=== PATIENT | male | born 1975 | race Caucasian/White ===

== ENCOUNTER 2017-05-13 20:37 | Emergency (ER) | payer OTHER ==
[~2017-05-13] VITALS: Ht 177.8 cm; Wt 104.1 kg
[~2017-05-13 20:37] MED LIST: OMEP40CA2 PO; PARO20TA3 PO
--- NOTE | 2017-05-14 00:40 | REPUSA ---
CLINICAL HISTORY: Edema. COMMENTS: Real time sonography with duplex doppler of the extremities bilaterally was performed with attention to the major deep venous structures. Evaluation reveals the common femoral, superficial femoral and popliteal veins bilaterally to be comp letely compressible without intraluminal thrombus. There is normal spontaneous phasic flow and augmen tation in all deep veins. The greater saphenous/common femoral vein junctions are patent bilaterally. IMPRESSION: No evidence of DVT in the lower extremities bilaterally. Thank you for your kind referral of this patient.
[2017-05-14 00:44] LABS: BASO % 0.4 % (0.0-1.0); EOS # 0.2 10^3/uL (0.0-0.50); EOS % 3.4 % (0.0-3.0); IMMATURE GRANULOCYTE % 0.9 % (0-0); LYMPH # 1.3 10^3/uL (1.5-4.5); LYMPH % 23.7 % (24.0-44.0); MEAN CORPUSCULAR HEMOGLOBIN 30.7 pg (27.0-33.0); MEAN CORPUSCULAR VOLUME 87.5 fl (80.0-96.0); MONO # 0.3 10^3/uL (0.0-0.8); MONO % 5.9 % (0.0-5.0); NEUTROPHILS # 3.7 10^3/uL (1.8-7.7); NEUTROPHILS % 65.7 % (36.0-66.0); PLATELET COUNT, AUTOMATED 226 10^3/uL (150-450); RED CELL DISTRIBUTION WIDTH 12.6 % (11.5-14.5); WHITE BLOOD COUNT 5.6 10^3/uL (4.0-10.0)
[2017-05-14 00:54] LABS: INR 1.09
[2017-05-14 01:07] LABS: ALBUMIN/GLOBULIN RATIO 1.43 (1.00-1.93); ALKALINE PHOSPHATASE 94 U/L (45-117); ALT/SGPT 37 U/L (12-78); ANION GAP 3 MEQ/L (8-16); AST/SGOT 19 U/L (15-37); BILIRUBIN,DIRECT 0.2 MG/DL (0.0-0.2); BILIRUBIN,TOTAL 0.7 MG/DL (0.2-1.0); BLOOD UREA NITROGEN 19 MG/DL (7-18); CALCIUM LEVEL 8.5 MG/DL (8.5-10.1); CARBON DIOXIDE LEVEL 30 MEQ/L (21-32); CHLORIDE LEVEL 110 MEQ/L (98-107); CREATININE FOR GFR 1.21 MG/DL (0.70-1.30); GLOMERULAR FILTRATION RATE > 60.0 (>60); GLUCOSE, FASTING 94 MG/DL (70-105); POTASSIUM SERUM 4.1 MEQ/L (3.5-5.1); SODIUM LEVEL 143 MEQ/L (136-145); TOTAL PROTEIN 6.8 GM/DL (6.4-8.2)
[2017-05-14] MEDS ORDERED: ISOVUE-370 76% 100ML VIAL (Q9967) As Ordered ONE (01:20)
--- NOTE | 2017-05-14 02:20 | REPUSA ---
CLINICAL HISTORY: Dyspnea, exclude PE. TECHNIQUE: Multiple incremental axial, coronal and oblique images are obtained from the thoracic inle t to the upper abdomen. Intravenous contrast material was administered as per pulmonary embolism prot ocol. COMMENTS: Bilateral upper lobes and right lower lobe segmental branch pulmonary emboli. There is excellent opacification of remaining pulmonary arterial system without evidence for central pulmonary embolism. Aorta is of normal caliber without evidence for dissection or aneurysm. Minimal subpleural groundglass densities of the lower lobes. There is no evidence of pleural or parenchymal mass. There are no pleural effusions. There is no evid ence of hilar or mediastinal lymphadenopathy. The heart and great vessels are within normal limits. Images of the upper abdomen demonstrate no evidence of adrenal mass. The bony structures are free of lytic or blastic lesions. IMPRESSION: Segmental branches pulmonary emboli in the upper lobes and right lower lobe. No main central pulmonary embolus. Minimal subpleural groundglass densities in the lower lobes. Subsegmental atelectatic air space disea se, developing infarctions versus a mild acute inflammatory pathology. Thank you for your kind referral of this patient.
[2017-05-14] MEDS ORDERED: ELIQ5TAB PO (03:35)
[2017-05-14] MEDS ORDERED: APIXABAN 5 MG TAB (ELIQUIS) PO ONE (03:45)
[2017-05-14 04:08] VITALS: BP 154/80
--- NOTE | 2017-05-14 08:30 | REP ---
PA and lateral chest: There are no comparisons. Lung coyne are clear. Cardiac size is mildly enlarged. The aj, mediastinum, and bony thorax are unremarkable. Impression: Mild cardiomegaly. Signed by Guicho Villareal MD 05/14/2017 08:22 A
--- NOTE | 2017-05-15 07:31 | ED PDOC ---
Post-Departure Follow-Up radiology report faxed to Violet Herrera MD May 15, 2017 07:31
--- NOTE | 2017-05-15 07:58 | ECGEPIP ---
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
== END 2017-05-14 04:12 | disposition home or self-care (01) ==
LOC: M ED 20:37
DX: I26.99 Other pulmonary embolism without acute cor pulmonale (principal); R00.1 Bradycardia, unspecified; K21.9 Gastro-esophageal reflux disease without esophagitis; I51.7 Cardiomegaly; Z79.899 Other long term (current) drug therapy
CPT/HCPCS: 71020; 71275; 80048; 80076; 82550; 82553; 83880; 85025; 85379; 85610; 85730; 93005; 93970; 99284; Q9967

== ENCOUNTER 2017-12-14 16:59 | Emergency (ER) | payer OTHER ==
[2017-12-14 18:58] LABS: BASO % 0.4 % (0.0-1.0); EOS # 0.2 10^3/uL (0.0-0.50); EOS % 2.8 % (0.0-3.0); HEMATOCRIT 35.6 % (42.0-52.0); HEMOGLOBIN 12.8 g/dl (13.5-17.5); IMMATURE GRANULOCYTE % 0.7 % (0-3.0); LYMPH % 18.3 % (24.0-44.0); MEAN CORPUSCULAR HEMOGLOBIN 31.5 pg (27.0-33.0); MEAN CORPUSCULAR VOLUME 87.7 fl (80.0-96.0); MONO # 0.3 10^3/uL (0.0-0.8); MONO % 5.7 % (0.0-5.0); NEUTROPHILS # 3.9 10^3/uL (1.8-7.7); NEUTROPHILS % 72.1 % (36.0-66.0); PLATELET COUNT, AUTOMATED 182 10^3/uL (150-450); RED BLOOD COUNT 4.06 10^6/uL (4.30-6.10); RED CELL DISTRIBUTION WIDTH 12.8 % (11.5-14.5); WHITE BLOOD COUNT 5.4 10^3/uL (4.0-10.0)
[2017-12-14 19:10] LABS: INR 1.07
[2017-12-14 19:25] LABS: ALBUMIN 3.9 GM/DL (3.2-5.2); ALKALINE PHOSPHATASE 85 U/L (45-117); ALT/SGPT 48 U/L (12-78); ANION GAP 4 MEQ/L (8-16); AST/SGOT 28 U/L (7-37); BILIRUBIN,DIRECT 0.1 MG/DL (0.0-0.2); BILIRUBIN,TOTAL 0.6 MG/DL (0.2-1.0); BLOOD UREA NITROGEN 20 MG/DL (7-18); CALCIUM LEVEL 8.4 MG/DL (8.5-10.1); CARBON DIOXIDE LEVEL 28 MEQ/L (21-32); CHLORIDE LEVEL 109 MEQ/L (98-107); CPK CREATINE PHOSPHOKINASE 161 U/L (39-308); CREATININE FOR GFR 1.12 MG/DL (0.70-1.30); GLOMERULAR FILTRATION RATE > 60.0 (>60); GLUCOSE, FASTING 99 MG/DL (70-100); POTASSIUM SERUM 4.2 MEQ/L (3.5-5.1); SODIUM LEVEL 141 MEQ/L (136-145); TOTAL PROTEIN 6.9 GM/DL (6.4-8.2); TROPONIN I < 0.02 NG/ML (< 0.10)
[2017-12-14] MEDS ORDERED: ISOVUE-370 76% 100ML VIAL (Q9967) As Ordered (19:26)
[2017-12-14 19:30] LABS: CK-MB VALUE MASS 2.2 NG/ML (<3.6); MB/CK RELATIVE INDEX 1.36 (< OR =4); NT-PRO BNP 24 PG/ML (<125); THYROID STIMULATING HORMONE 0.711 uIU/ML (0.358-3.740)
== END 2017-12-14 21:23 | disposition home or self-care (01) ==
LOC: M ED 16:59
DX: J45.909 Unspecified asthma, uncomplicated (principal); R60.0 Localized edema; I10 Essential (primary) hypertension; Z86.711 Personal history of pulmonary embolism; Z79.899 Other long term (current) drug therapy; Z79.01 Long term (current) use of anticoagulants; Z79.82 Long term (current) use of aspirin
CPT/HCPCS: Q9967

== ENCOUNTER → 2018-02-21 | Outpatient (REF) | payer OTHER ==
[2018-02-21 14:47] LABS: HEMATOCRIT 38.6 % (42.0-52.0); HEMOGLOBIN 13.6 g/dl (13.5-17.5); MEAN CORPUSCULAR HEMOGLOBIN 31.5 pg (27.0-33.0); MEAN CORPUSCULAR HGB CONC 35.2 g/dl (32.0-36.5); MEAN CORPUSCULAR VOLUME 89.4 fl (80.0-96.0); PLATELET COUNT, AUTOMATED 185 10^3/uL (150-450); RED BLOOD COUNT 4.32 10^6/uL (4.30-6.10); RED CELL DISTRIBUTION WIDTH 12.4 % (11.5-14.5); WHITE BLOOD COUNT 5.2 10^3/uL (4.0-10.0)
[2018-02-21 15:13] LABS: FERRITIN 507 NG/ML (26-388); FREE T4 0.87 NG/DL (0.76-1.46); IRON (FE) 67 UG/DL (65-175); PERCENT SATURATION 29.1 % (19.7-50.0); THYROID STIMULATING HORMONE 0.728 uIU/ML (0.358-3.740); TOTAL IRON BINDING CAPACITY 230 UG/DL (250-450)
[2018-02-21 15:32] LABS: FOLATE 8.8 NG/ML; VITAMIN B12 LEVEL 512 PG/ML
[2018-02-28 10:05] LABS: DRVV SCREEN 102.8 SEC
[2018-02-28 10:12] LABS: PTT LUPUS TYPE ANTICOAG SCREEN 2.5 (0-1.2)
[2018-02-28 10:20] LABS: DRVV CONFIRM 36.6 SEC
[2018-02-28 14:14] LABS: PROTEIN C FUNCTIONAL ACTIVITY 130 % (73-180); PROTEIN S FUNCTIONAL ACTIVITY 124 % (63-140)
[2018-02-28 14:14] LABS: ANTI THROMBIN 3 FUNCT ACTIVITY 110 % (75-135)
== END ==
LOC: M SFHCADAM 11:55
DX: Z86.711 Personal history of pulmonary embolism (principal); D64.9 Anemia, unspecified; R63.5 Abnormal weight gain

== ENCOUNTER 2018-04-14 10:43 | Day surgery (SDC) | payer OTHER ==
[2018-04-14] MEDS: NS 1,000 ML IV (06:00)
[2018-04-14] MEDS ORDERED: PROPOFOL 200 MG/20 ML VIAL As Ordered ×3 (11:51→13:18)
[2018-04-14] MEDS ORDERED: LIDOCAINE 2% INJ 100 MG/5 ML SDV (FOR ANES.) As Ordered (11:52)
== END 2018-04-14 14:06 | disposition home or self-care (01) ==
LOC: M OPP 10:43
DX: D50.9 Iron deficiency anemia, unspecified (principal); K64.0 First degree hemorrhoids; K22.8 Other specified diseases of esophagus; K44.9 Diaphragmatic hernia without obstruction or gangrene; K21.9 Gastro-esophageal reflux disease without esophagitis; R12 Heartburn; Z86.711 Personal history of pulmonary embolism; R06.83 Snoring; Z79.82 Long term (current) use of aspirin; Z79.899 Other long term (current) drug therapy; Z80.0 Family history of malignant neoplasm of digestive organs
CPT/HCPCS: 45378

== ENCOUNTER → 2018-06-13 | Outpatient (REF) | payer OTHER ==
[2018-06-20 10:20] LABS: DRVV SCREEN 116.7 SEC
[2018-06-20 10:26] LABS: PTT LUPUS TYPE ANTICOAG SCREEN 2.8 (0-1.2)
[2018-06-20 10:33] LABS: DRVV CONFIRM 40.3 SEC; LUPUS CONFIRM RATIO 1.1
[2018-06-20 10:37] LABS: NORMALIZED RATIO 2.55 (0.00-1.20)
[2018-06-22 14:20] LABS: ANA (HEP2) Positive (.); APTT 1:1 NP 44.1 sec (.); Anticardiolipin Ab, IgA <10 APL (.); DRVTT Confirm Seconds 35.3 sec (.); DRVTT Ratio 3.9 ratio (.); DRVTT Screen Seconds 144.1 sec (.)
[2018-06-23 08:08] LABS: HEXAGONAL PHASE PHOSPHOLIPID 134 sec (0-11)
== END ==
LOC: M SFHCADAM 13:53
DX: R76.0 Raised antibody titer (principal); Z86.711 Personal history of pulmonary embolism
CPT/HCPCS: 86147

== ENCOUNTER → 2020-01-16 | Outpatient (REF) | payer BC ==
[~2020-01-16] MED LIST changes: +ASPI325T57 PO; +BAYE325T12 PO; +ELIQ5TAB PO; +IBUP200C25 PO; +LISI10TA4 PO; +LOVE1INJ SC; -OMEP40CA2 PO; +OMEP40CA97 PO; +PROAAER10 INH; +WARF-23 PO
[2020-01-16 19:19] LABS: ALBUMIN 3.9 GM/DL (3.2-5.2); ALT/SGPT 44 U/L (12-78); BILIRUBIN,TOTAL 0.6 MG/DL (0.2-1.0); BLOOD UREA NITROGEN 22 MG/DL (7-18); CALCIUM LEVEL 8.8 MG/DL (8.5-10.1); CARBON DIOXIDE LEVEL 26 MEQ/L (21-32); CHLORIDE LEVEL 108 MEQ/L (98-107); CREATININE FOR GFR 1.29 MG/DL (0.70-1.30); GLOMERULAR FILTRATION RATE > 60.0 (>60); GLUCOSE, FASTING 96 MG/DL (70-100); SODIUM LEVEL 140 MEQ/L (136-145)
[2020-01-16 19:26] LABS: BASO % 0.5 % (0.0-1.0); EOS # 0.1 10^3/uL (0.0-0.5); EOS % 2.5 % (0.0-3.0); HEMATOCRIT 40.2 % (42.0-52.0); HEMOGLOBIN 14.2 g/dl (13.5-17.5); LYMPH # 0.9 10^3/uL (1.5-5.0); LYMPH % 16.2 % (24.0-44.0); MEAN CORPUSCULAR HEMOGLOBIN 31.2 pg (27.0-33.0); MEAN CORPUSCULAR HGB CONC 35.3 g/dl (32.0-36.5); MEAN CORPUSCULAR VOLUME 88.4 fl (80.0-96.0); MONO # 0.3 10^3/uL (0.0-0.8); MONO % 5.4 % (0.0-5.0); NEUTROPHILS # 4.1 10^3/uL (1.5-8.5); NEUTROPHILS % 74.5 % (36.0-66.0); PLATELET COUNT, AUTOMATED 152 10^3/uL (150-450); RED BLOOD COUNT 4.55 10^6/uL (4.30-6.10); WHITE BLOOD COUNT 5.6 10^3/uL (4.0-10.0)
[2020-01-16 19:28] LABS: PARTIAL THROMBOPLASTIN TIME 73.6 SECONDS (25.0-38.4)
[2020-01-16 19:30] LABS: PT 1:2 SUBSTITUTION 13.9 SECONDS
[2020-01-16 19:32] LABS: APTT 1:2 SUBSTITUTION 47.8 SECONDS
[2020-01-16 19:39] LABS: HEMOGLOBIN A1c 5.2 %
[2020-01-22 09:48] LABS: DRVV SCREEN 98.3 SEC
[2020-01-22 09:51] LABS: PTT LUPUS TYPE ANTICOAG SCREEN 2.4 (0-1.2)
[2020-01-22 09:58] LABS: DRVV CONFIRM 37.8 SEC
[2020-01-22 10:15] LABS: NORMALIZED RATIO 2.3 (0.00-1.20)
[2020-01-26 18:07] LABS: HEXAGONAL PHASE PHOSPHOLIPID 110 sec (0-11)
== END ==
LOC: M SFHCADAM 15:07
PROVIDERS: ATTEND Physician Assistant
DX: R76.0 Raised antibody titer (principal); Z86.711 Personal history of pulmonary embolism; I10 Essential (primary) hypertension; Z13.1 Encounter for screening for diabetes mellitus

== ENCOUNTER 2020-09-14 12:58 | Inpatient (IN) | payer BC ==
[~2020-09-14] VITALS: Ht 175.3 cm; Wt 109.3 kg
[~2020-09-14 12:58] MED LIST changes: +LISI10TA22 PO; -LISI10TA4 PO
--- OUTSIDE RECORDS SUMMARY | 2020-09-14 13:06 | CCD ---
Author Author [facility] Organization [facility] Address Unknown Phone Unavailable Care Team Providers Care Service Provider Name Role Phone Misty Chen Unavailable PROBLEMS Type Condition ICD9-CM Code [id number] Code Onset Dates Condition S tatus SNOMED Code Notes Problem Vitamin D deficiency E55.9 Active 12056331 Problem Anxiety and depression F41.9 Active 014816388 Problem Lumbago M54.5 Active 569975454 Problem Venous stasis dermatitis of left lower extremity I 87.2 Active 05684322 Problem Lupus anticoagulant syndrome D68.62 Active 192 78362 Problem GERD (gastroesophageal reflux disease) K21.9 A ctive 822412256 Problem Essential hypertension I10 Active 65131958 Problem Lupus anticoagulant positive R76.0 Active 192 70181 Problem History of pulmonary embolism Z86.711 Active 16 2734498 ALLERGIES No Known Allergies ENCOUNTERS from 1975 to 2020-08-20 Encounter Location Date Provider Diagnosis [address] [place] [address] Jul, Reyes Chen Anxiety and depression F41.9 and Lupus anticoagulant syndrome D68.62 IMMUNIZATIONS No Information SOCIAL HISTORY Tobacco Use: Social History Observation Description Date Details (start date - stop date) Never Smoker Sex Assigned At : Social History Observation Description Sex Assigned At Unknown Education: Question Answer Notes Level of Education: Finished High School Audit Question Answer Notes Total Score: 4 Interpretation: Alcohol Education Language: Question Answer Notes Languages spoken: Citizen Of [place] Protestant: Question Answer Notes Protestant 33 None Domestic Violence: Question Answer Notes Status: Sexual Hx: Question Answer Notes Had sex in the last 12 months (vaginal, oral, or anal)? Yes with Women only Drug and Alcohol Question Answer Notes Total Score: 0 Interpretation: No problems reported Alcohol Screening: Question Answer Notes Did you have a drink containing alcohol in the past year? Ye s Points 4 Interpretation Positive How often did you have six or more drinks on one occas ion in the past year? Less than monthly (1 point) How many drinks did you have on a typica l day when you were drinking in the past year? 1 or 2 (0 points) How often did you have a drink containing alcohol in t he past year? Two to three times per week (3 points) BMI Care Goal Follow-Up Question Answer Notes Above Normal BMI Follow-Up Dietary management educatio n, guidance, and counseling Tobacco Use: Question Answer Notes Are you a: never smoker REASON FOR REFERRAL No Information VITAL SIGNS No information MEDICATIONS Medication SIG (Take, Route, Frequency, Duration) Notes Start Da te End Date Status Paxil 20 mg 1 tablet in the morning p.o. Once a day for 90 Active Eliquis 5 MG 1 tab Orally twice a day for 90 day(s) Jan Active Omeprazole 20 MG 1 capsule Orally Once a day Active PROCEDURES No Information RESULTS No Results REASON FOR VISIT refill MEDICAL (GENERAL) HISTORY Type Description Date Medical History H/O Anxiety Medical History Lumbar Degenerative Disc Disease Medical History GERD Medical History Vitamin D deficiency Medical History 05/10 PE, prob started with LLE DVT - s/ p Eliquis x 1 month Medical History Echo 10/2017 - Normal - EF 65% Surgical History gall bladder 2006 Surgical History EGD - gastritits Neg H. Pylori 09/2016 Surgical History EGD with biopsies - no Virgie c or Eosinophilc Esoph per biopsy - chronic inflammation, Colonoscopy - normal 03/2018 Hospitalization History surgery Goals Section No Information Health Concerns No Information MEDICAL EQUIPMENT No Information MENTAL STATUS No Information FUNCTIONAL STATUS No Information ASSESSMENTS Encounter Date Diagnosis Assessment Notes Treatment Notes Treatm ent Clinical Notes Jul, Anxiety and depression (ICD-10 - F41.9) Jul, Lupus anticoagulant syndrome (ICD-10 - D68.62) PLAN OF TREATMENT Medication Medication Name Sig Start Date Stop Date Paxil 20 mg 1 tablet in the morning p.o. Once a day for 90 Omeprazole 20 MG 1 capsule Orally Once a day Eliquis 5 MG 1 tab Orally twice a day for 90 day(s) Jan, 2 020 Insurance Providers Payer Name Payer Address Payer Phone Insured Name Patient Relati onship to Insured Coverage Start Date Coverage End Date [employer] PPO [address] [id number] JORGE SANON self
--- OUTSIDE RECORDS SUMMARY | 2020-09-14 13:06 | CCD ---
Author Author [facility] Organization [facility] Address Unknown Phone Unavailable Care Team Providers Care Technology Training Associate Name Role Phone Misty Chen Unavailable PROBLEMS Type Condition ICD9-CM Code [id number] Code Onset Dates Condition S tatus SNOMED Code Notes Problem Vitamin D deficiency E55.9 Active 53534473 Problem Anxiety and depression F41.9 Active 684030304 Problem Lumbago M54.5 Active 674592064 Problem Venous stasis dermatitis of left lower extremity I 87.2 Active 27619608 Problem Lupus anticoagulant syndrome D68.62 Active 192 75891 Problem GERD (gastroesophageal reflux disease) K21.9 A ctive 117264590 Problem Essential hypertension I10 Active 30512149 Problem Lupus anticoagulant positive R76.0 Active 192 74359 Problem History of pulmonary embolism Z86.711 Active 16 5868576 ALLERGIES No Known Allergies ENCOUNTERS from 1975 to 2020-08-23 Encounter Location Date Provider Diagnosis [address] [place] [address] Jul, Reg yara Chen IMMUNIZATIONS No Information SOCIAL HISTORY Tobacco Use: Social History Observation Description Date Details (start date - stop date) Never Smoker Sex Assigned At : Social History Observation Description Sex Assigned At Unknown Education: Question Answer Notes Level of Education: Finished High School Audit Question Answer Notes Total Score: 4 Interpretation: Alcohol Education Language: Question Answer Notes Languages spoken: Somali Tenriism: Question Answer Notes Tenriism 33 None Domestic Violence: Question Answer Notes [...] Information RESULTS No Results REASON FOR VISIT med issue MEDICAL (GENERAL) HISTORY Type Description Date Medical [...] No Information FUNCTIONAL STATUS No Information ASSESSMENTS No Information PLAN OF TREATMENT Medication Medication Name Sig Start Date Stop Date Paxil 20 mg 1 tablet in the morning p.o. Once a day for 90 Omeprazole 20 MG 1 capsule Orally Once a day Eliquis 5 MG 1 tab Orally twice a day for 90 day(s) Jan, 020 Insurance Providers Payer Name Payer Address Payer Phone Insured Name Patient Relati onship to Insured Coverage Start Date Coverage End Date [employer] PPO [address] [id number] JORGE SANON self
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
[2020-09-14 13:53] LABS: BASO % 0.4 % (0.0-1.0); EOS # 0.1 10^3/uL (0.0-0.5); EOS % 1.2 % (0.0-3.0); HEMATOCRIT 38.1 % (42.0-52.0); HEMOGLOBIN 13.2 g/dl (13.5-17.5); LYMPH # 0.8 10^3/uL (1.5-5.0); MEAN CORPUSCULAR HEMOGLOBIN 30.2 pg (27.0-33.0); MEAN CORPUSCULAR HGB CONC 34.6 g/dl (32.0-36.5); MEAN CORPUSCULAR VOLUME 87.2 fl (80.0-96.0); MONO # 0.3 10^3/uL (0.0-0.8); MONO % 4.9 % (2.0-8.0); NEUTROPHILS # 5.5 10^3/uL (1.5-8.5); NEUTROPHILS % 80.5 % (36.0-66.0); RED BLOOD COUNT 4.37 10^6/uL (4.30-6.10); WHITE BLOOD COUNT 6.9 10^3/uL (4.0-10.0)
[2020-09-14 14:02] LABS: INR 1.2; PROTHROMBIN TIME 15.5 SECONDS (12.5-14.3)
--- NOTE | 2020-09-14 14:19 | REP ---
INDICATION: DYSPNEA/COUGH. COMPARISON: Chest x-ray & CTA 05/14/2017 TECHNIQUE: AP portable upright FINDINGS: Exam is lordotic which exaggerates the heart size and limits evaluation of posterior lower lung zones. No visible effusion, infiltrate, atelectasis or mass. Heart not enlarged for this technique. I see no vascular redistribution or definite edema. The aorta and airway were unremarkable. There is no widening of the mediastinum. Visualized bones grossly intact. No free air under the diaphragm. IMPRESSION: Negative AP portable chest for acute finding. The lordotic positioning limits evaluation of the posterior and lower lung zones as well as exaggerating heart size. <Electronically signed by Deepak Calderon > 09/14/20 [id number]
[2020-09-14 14:25] LABS: ALBUMIN 3.6 GM/DL (3.2-5.2); ALT/SGPT 33 U/L (12-78); BILIRUBIN,DIRECT 0.2 MG/DL (0.0-0.2); BILIRUBIN,TOTAL 0.8 MG/DL (0.2-1.0); BLOOD UREA NITROGEN 19 MG/DL (7-18); CALCIUM LEVEL 8.5 MG/DL (8.5-10.1); CARBON DIOXIDE LEVEL 23 MEQ/L (21-32); CHLORIDE LEVEL 110 MEQ/L (98-107); CK-MB VALUE MASS 1.8 NG/ML (<3.6); CPK CREATINE PHOSPHOKINASE 116 U/L (39-308); GLOMERULAR FILTRATION RATE > 60.0 (>60); GLUCOSE, FASTING 103 MG/DL (70-100); MB/CK RELATIVE INDEX 1.55 (< OR =4); NT-PRO BNP 793 PG/ML (<125); POTASSIUM SERUM 3.9 MEQ/L (3.5-5.1); SODIUM LEVEL 143 MEQ/L (136-145); TOTAL PROTEIN 6.4 GM/DL (6.4-8.2); TROPONIN I 0.09 NG/ML (< 0.10)
[2020-09-14 14:32] LABS: PLATELET COUNT, AUTOMATED 94 10^3/uL (150-450)
--- OUTSIDE RECORDS SUMMARY | 2020-09-14 14:35 | CCD ---
Author Author [facility] Organization [facility] Address Unknown Phone Unavailable Care Team Providers Care Underground Drill Operator Name Role Phone Mary Christopher DEVOPS DEVELOPER Unavailable Unavailable FlumanMary DEVOPS DEVELOPER Unavailable Unavailable FlumanMary DEVOPS DEVELOPER Unavailable Unavailable Maring, Renaldo PA Unavailable Unavailable [...] is protected by Article 27-F of the [facility] Public Health law. If you continue you may have access to information: Regarding HIV / AIDS; Provided by facilities licensed or operated by the [facility] Office of Mental Health; or Provided by the [facility] Office for People With Developmental Disabilities. If such information is present, then the following [facility] mandated warning applies: This information has [...] law may result in a fine or alf sentence or both. A general authorization for [...] EST - 08/28/2020 08:48:53 AM EST DocuTap ([facility] ) Unknown [address] [facility] [place] [address] 08/22/2020 12:00:00 AM EST eCW1 ([facility]) Unknown [address] [place] [address] 08/19/2020 12:00:00 AM EST eCW1 ([facility]) Outpatient Attender: Mary JOHNSON 05/28/2020 09 :34:00 AM EST FULT CO-FIT X 2 ASMT [facility] FULT CO-FIT X 2 ASMT Unknown [address] [address] [address] [place] [address] 02/07/2020 12:00:00 AM EDT eCW1 ([facility]) Outpatient [address] [place] [address] 01/16/2020 12:00:00 AM EDT eCW1 ([facility]) Medications Medication Brand Name Start Date Product [...] AM EDT active Eliquis 5 MG eCW1 ([facility]) apixaban 5 MG Oral Tablet [Eliquis] Eliquis 5 MG Eliquis 5 M G 02/07/2020 12:00:00 AM EDT active Eliquis 5 MG eCW1 ([facility]) apixaban 5 MG Oral Tablet [Eliquis] Eliquis 5 MG Eliquis 5 M G 02/07/2020 12:00:00 AM EDT active Eliquis 5 MG eCW1 ([facility]) apixaban 5 MG Oral Tablet [Eliquis] Eliquis 5 MG Eliquis 5 M G 02/07/2020 12:00:00 AM EDT active Eliquis 5 MG eCW1 ([facility]) 20 mg 01/17/2020 12:00:00 AM EDT tablet [...] type / Coverage type Policy ID Covered libertarian ID Covered libertarian's relationship to mix Policy Mix Plan Information [facility] PPO 306 [id number] [facility] PPO 306 [id number] [id number] E[employer]V [employer]ER[employer] emp [id number] Employee [id number] SELF PAY [facility] BC-BS PPO 306 [id number] SP [id number] [facility] [id number] SP [id number] SELF PAY ONLY [id number] SP [id number] [id number] SP [id number] MERITAIN [id number] SP [id number] [employer] [id number] SP [id number] MERITAIN U [id number] Self [id number] [place] [employer] [facility] [id number] [facility] ial Insurance [id number] ID IDENTIFICATION [id number] Other In surance [id number] MERITAIN [id number] SP [id number] 2 ANSI-Not a Secondary Insurance [id number] ANSI-Not a Secondary Insurance [id number] ANSI-Not a Secondary Insurance [id number] LIF[employer]IME BENEFIT [employer]UT[employer] [id number] SP [id number] ANSI-Not a Secondary Insurance [id number] ANSI-Not a Secondary Insurance [id number] [facility] Medicaid Medicaid [id number] Self [id number] Lifetime Benefit Solution Commercial [id number] Self [id number] ANSI-Not a Secondary Insurance [id number] LIF[employer]IME BENEF[employer]UT[employer] [id number] SP [id number] LIFETIME BENEFIT SOLUTIONS [id number] SP [id number] [facility] Medicaid Medicaid Self GHI FAMILY HLTH PLUS [id number] SP [id number] MEDICAID [id number] SP [id number] Problems, Conditions, and Diagnoses Code Display Name Description Problem Type Effective Dates Data Source(s) 96746763 Essential hypertension Essential hypertension Problem 02/12/2020 12:00:00 AM EDT MEDENT ([facility], ) D68.62 [id number] Lupus anticoagulant syndrome Problem 020 12:00:00 AM EDT eCW1 ([facility]) I87.2 20788238 Venous stasis dermatitis of left lower ex tremity Problem 01/16/2020 12:00:00 AM EDT eCW1 ([facility]) Results ID Date Data Source [id number] 06/27/2020 12:00:00 AM EST [facility] Name Value Range Interpretation Code Description Data Nasra rce(s) Supporting Document(s) SARS-CoV-2 Ag [Presence] in Respiratory specimen by LOU with probe detection [facility] This lab was ordered by [facility] and reported by [facility]. ID Date Data Source [id number] 03/17/2020 12:00:00 AM EDT CHARTMAKER ([facility]) Name Value Range Interpretation Code Description Data Nasra rce(s) Supporting Document(s) SARS-CoV2 Rapid Antigen CHARTM CANDI ([facility]) This lab was ordered by [facility] and reported by [facility]. ID Date Data Source PT&APTT SUBSITUTION TESTS 02/12/2020 10:12:07 AM EDT eCW1 ([facility]) Name Value Range Interpretation Code Description Data Nasra rce(s) Supporting Document(s) 15.0 eCW1 ([facility]) 73.6 [facility]1 [facility]) 13.9 eCW1 ([facility]) 47.8 eCW1 ([facility]) ID Date Data Source Antiphospholipid Syndrome Comp 02/12/2020 10:12:02 AM EDT eC W1 ([facility]) Name Value Range Interpretation Code Description Data Nasra rce(s) Supporting Document(s) 41 eCW1 ([facility]) 53 eCW1 ([facility]) <10 eCW1 ([facility]) 0 eCW1 ([facility]) <10 eCW1 ([facility]) <10 eCW1 ([facility]) 39 eCW1 ([facility]) 66.4 eCW1 ([facility]) 18 eCW1 ([facility]) <10 eCW1 ([facility]) 41.9 eCW1 ([facility]) 40.3 eCW1 ([facility]) 78 eCW1 ([facility]) 134.0 eCW1 ([facility]) eCW1 ([facility]) 3.3 eCW1 ([facility]) 52.7 eCW1 ([facility]) ID Date Data Source CBC with Differential 01/17/2020 12:05:50 PM EDT eCW1 [facility] Name Value Range Interpretation Code Description Data Nasra rce(s) Supporting Document(s) 4.55 eCW1 ([facility]) 5.6 eCW1 ([facility]) 88.4 eCW1 ([facility]) 31.2 eCW1 ([facility]) 40.2 eCW1 ([facility]) 14.2 eCW1 ([facility]) 13.2 eCW1 ([facility]) 74.5 eCW1 ([facility]) 152 eCW1 ([facility]) 35.3 eCW1 ([facility]) 0.5 eCW1 ([facility]) 16.2 eCW1 ([facility]) 2.5 eCW1 ([facility]) 5.4 eCW1 ([facility]) 0.1 eCW1 ([facility]) 0.9 eCW1 ([facility]) 4.1 eCW1 ([facility]) 0.3 eCW1 ([facility]) 0.0 eCW1 ([facility]) ID Date Data Source Comprehensive Metabolic Profile (CMP) 01/17/2020 12:05:44 PM EDT eCW1 ([facility]) Name Value Range Interpretation Code Description Data Nasra rce(s) Supporting Document(s) 22 eCW1 ([facility]) 96 eCW1 ([facility]) 1.29 eCW1 ([facility]) > 60.0 eCW1 ([facility]) 140 eCW1 ([facility]) 108 eCW1 ([facility]) 4.0 eCW1 ([facility]) 26 eCW1 ([facility]) 8.8 eCW1 ([facility]) 44 eCW1 ([facility]) 26 eCW1 ([facility]) 97 eCW1 ([facility]) 0.6 eCW1 ([facility]) 7.0 eCW1 ([facility]) 3.9 eCW1 ([facility]) 1.3 eCW1 ([facility]) ID Date Data Source [id number] 01/17/2020 12:05:38 PM EDT eCW1 ([facility]) Name Value Range Interpretation Code Description Data Nasra rce(s) Supporting Document(s) Hemoglobin A1c/Hemoglobin.total in Blood 5.2 eCW1 ([facility]) Procedure Social History Code Duration Value Status Description Data Source(s ) Smoking 01/16/2020 12:00:00 AM EDT Never Smoker completed Never S moker eCW1 ([facility]) Smoking 01/16/2020 12:00:00 AM EDT Never Smoker completed Never S moker eCW1 ([facility]) Smoking 01/16/2020 12:00:00 AM EDT Never Smoker completed Never S moker eCW1 ([facility]) Smoking 01/16/2020 12:00:00 AM EDT Never Smoker completed Never S moker eCW1 ([facility]) Vital Signs ID Date Data Source UNK Name Value Range Interpretation Code Description Data Source(s) Body height 69 [in_i] 69 [in_i] [facility] ([facility], ) 5'9" Heart rate 68 /min 68 /min [facility] Diastolic blood pressure 104 mm[Hg] 104 mm[Hg] MEDENT ([facility], ) Systolic blood pressure 155 mm[Hg] 155 mm[Hg] M EDENT ([facility], ) Diastolic blood pressure 88 mm[Hg] 88 mm[Hg] eCW1 ([facility]) Systolic blood pressure 130 mm[Hg] 130 mm[Hg] e CW1 ([facility]) Body temperature 96.7 [degF] 96.7 [degF] eCW1 ( [facility]) Respiratory rate 18 /min 18 /min eCW1 ([facility]) Heart rate 85 /min 85 /min eCW1 ([facility]) Body mass index (BMI) [Ratio] 38.31 kg/m2 38.31 kg/m2 eCW1 ([facility]) Body height [in_i] eCW1 ([facility]) Body weight 244.6 [lb_av] 244.6 [lb_av] eCW1 ([facility]) Patient Treatment Plan of Care Planned Activity Planned Date Details Description Data Source (s) apixaban 5 MG Oral Tablet [Eliquis] 02/07/2020 12:00:00 AM EDT eCW1 ([facility]) apixaban 5 MG Oral Tablet [Eliquis] 02/07/2020 12:00:00 AM EDT eCW1 ([facility]) apixaban 5 MG Oral Tablet [Eliquis] 02/07/2020 12:00:00 AM EDT eCW1 ([facility]) apixaban 5 MG Oral Tablet [Eliquis] 02/07/2020 12:00:00 AM EDT eCW1 ([facility])
[2020-09-14] MEDS ORDERED: ISOVUE-370 76% 100ML VIAL As Ordered ONE (14:36)
--- NOTE | 2020-09-14 14:59 | ECGEPIP ---
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
--- NOTE | 2020-09-14 15:34 | REP ---
INDICATION: shortness of breath, h/o pe. COMPARISON: CT angiogram 12/14/2017, portable chest 09/14/2020 TECHNIQUE: CT angiogram chest performed following the intravenous administration of 75 cc of Isovue 370. Sagittal and coronal reconstruction images are performed. FINDINGS: There are scattered ground-glass opacities in the perihilar region on the right involving the upper lobe, in the medial basal segment of the right lower lobe and no dense consolidation or pleural effusion. This is a changed pattern since the previous study. A stable 3.5 mm nodule on image 25 in the right upper lobe without any definite new solid nodules. No calcified pleural plaque, effusion or parenchymal masses. Heart is not grossly enlarged. There is no pericardial thickening or effusion see no hiatal hernia no pathologic sized mediastinal adenopathy. There is 11.7 mm lymph node in the right hilum. Subcentimeter node in the left hilar, right paratracheal and other mediastinal nodes are seen without pathologic sized measurements of 10 mm or more. The main, right, left and lobar pulmonary arteries are without filling defects. Left lower lobe segmental arteries are partially thrombosed and seen well on both axial images and the coronal reconstructions some fluid the medial basal and lateral basal segments. Medial basal segment of the right lower lobe pulmonary artery also shows thrombus and filling defect. The right middle and both upper lobes are without definite thrombus. There is no axillary or supraclavicular mass. Bone windows are unchanged without acute findings. Clips from prior cholecystectomy are seen in the upper abdomen but the solid organs portions visible were intact. Adrenal glands and upper poles kidneys as well as pancreas, liver and spleen were unremarkable. Bowel loops intact. IMPRESSION: Evidence for pulmonary emboli in the left lower lobe and to a lesser degree the right lower lobe. At least the medial and lateral basal segments on the left and medial basal segment on the right are involved. The right middle and upper lobes without similar findings no central emboli in the mediastinum. Some scattered hazy ground-glass opacities in the lung coyne that may reflect some subsegmental atelectatic change. A stable 3.5 mm right upper lobe nodule noted and a right hilar node present with short axis 1 point 2 cm not much changed. No other significant or new finding. <Electronically signed by Deepak Calderon > 09/14/20 [id number]
--- NOTE | 2020-09-14 16:23 | REP ---
INDICATION: PE. COMPARISON: 12/14/2017 TECHNIQUE: Multiple ultrasonographic images of the deep venous structures of the bilateral thighs were obtained from the level of the common femoral vein to the popliteal vein in the longitudinal and transverse scan planes along with Doppler interrogation and color flow Doppler imaging. FINDINGS: The deep venous system in the left lower extremity shows full compressibility throughout its course there is respiratory variation, augmented flow and color Doppler consistent with normal left lower extremity deep venous system. The right lower extremity deep venous system shows thrombus from the distal femoral through popliteal veins. This is occlusive and represents acute DVT. The mid and proximal femoral vein and common femoral vein where normal. IMPRESSION: 1. There is acute occlusive DVT in the right distal femoral through popliteal vein. From the mid femoral through common femoral vein there is full compressibility and no thrombus. 2. There is no ultrasonographic evidence of deep venous thrombosis involving any of the visualized deep venous structures of the left thigh as described above. Accredited by the [employer] in Vascular Peripheral Ultrasound. <Electronically signed by Deepak Calderon > 09/14/20 [id number]
[2020-09-14] MEDS ORDERED: HEPARIN DRIP 25,000 UNITS in IV 1 EA IV SCH ×2 (16:45→17:48)
[2020-09-14 16:57] LABS: PARTIAL THROMBOPLASTIN TIME 90.8 SECONDS (24.2-38.5)
[2020-09-14] MEDS ORDERED: HEPARIN SOD (PORCINE) 5000UNITS/ML 1ML VIAL/SYRINGE As Ordered ONE (16:58)
[2020-09-14] MEDS ORDERED: HEPARIN SOD (PORCINE) 5000UNITS/ML 1ML VIAL/SYRINGE IV PRN (18:00)
--- NOTE | 2020-09-14 19:13 | HPE ---
HISTORY AND PHYSICAL DATE OF ADMISSION: 09/14/2020 PRINCIPAL DIAGNOSIS: Pulmonary embolism and acute DVT right lower extremity. SECONDARY DIAGNOSES: History of previous pulmonary embolism, history of lupus anticoagulant, noncompliance with Eliquis therapy. PRIMARY CARE PHYSICIAN: Nicolas Palma HISTORY OF PRESENT ILLNESS: Jamar Sanon is a 63-year-old who sees Nicolas Palma, in the [place] office. He has a history of pulmonary embolism, has lupus anticoagulant, was on exterminator anticoagulant therapy with Eliquis, which he admits he misses "quite a few" doses every week. Here he has had subacute decline in exercise tolerance with dyspnea on exertion for 3 or 4 months; worse over the last 4 weeks and particularly worse over last week. He has not been seen in the office since December 2019. He said he was "definitely going to make an appointment" to talk about this shortness of breath, but ended up in the Emergency Room instead. His imaging today shows a new pulmonary embolism right lobe and an acute occlusive DVT in the right distal femoral through popliteal vein. As noted before he had a pulmonary embolism 05/10, had left lower extremity DVT at that time, was found to have lupus anticoagulant and was put on exterminator anticoagulant since then. Review of the chart shows that the patient was seen previously 06/11 and was referred to hematology, who incorrectly thought that the patient's thrombophilia workup was performed while the patient was on Eliquis. Patient stopped going to hematology, then dropped off his anticoagulant and restarted this at the 01/11 appointment. He admits that he misses several doses a week. OTHER PAST MEDICAL HISTORY: On 11/09 echocardiogram was essentially normal, ejection fraction 65%. He has degenerative disc disease of the lumbosacral spine, GERD, history of anxiety. PAST SURGICAL HISTORY: Cholecystectomy in 2006, EGD 10/08, gastritis noted, EGD 04/11, biopsies were negative except for chronic inflammation, colonoscopy was normal. FAMILY HISTORY: Father had gastric cancer. Mother is alive and well. There is no history of VTE in the family. SOCIAL HISTORY: Does not smoke. Alcohol intake is low. Works at [employer] in [place]. No real exercise program. He is with three children. ALLERGIES: None known. MEDICATIONS: 1. Eliquis 5 mg b.i.d. 2. Omeprazole 40 mg daily. 3. Paroxetine 20 mg daily. REVIEW OF SYSTEMS: No hemoptysis, rectal bleeding, urinary bleeding, epistaxis, chest pain, palpitations. PHYSICAL EXAMINATION: VITALS: Blood pressure 165/95; was 133/83 when he came into the hospital. Pulse 87, respiratory rate listed as 20, it is closer to 16, O2 saturation 94 to 96% on room air. GENERAL: Appears alert, conversant, in no distress, resting comfortably. HEENT: Unremarkable. No thyromegaly. No carotid bruits. LUNGS: Clear. HEART: Without murmur. ABDOMEN: Soft, nontender. No masses. EXTREMITIES: No cyanosis. He has 1+ peripheral edema in the right lower extremity and the diameter is 4 cm greater than the left. Trace edema of the left lower extremity. Good distal pulses. LABORATORY DATA: White count 6.9, hemoglobin 13.2, platelets 94,000. Sodium 143, potassium 3.9, BUN 19, creatinine 1.3, glucose 103. Troponin 0.9. INR 1.2. BNP 739. Respiratory panel is pending. IMAGING STUDIES: As summarized above. IMPRESSION AND PLAN: 1. Recurrent DVT and recurrent pulmonary embolism: Probably due to noncompliance with Eliquis. Plan: He is being admitted to a monitored bed. He is on a Heparin drip. I have discussed the case with Dr. Oliva, she will see the patient in consultation. Consider more invasive management depending on the results of stat echocardiogram, which we are ordering tonight. Troponins are abnormal, I will repeat the troponin again in 8 hours and again in the morning. 2. History of GERD: Continue current regimen. 3. History of depression: Continue his Paroxetine to avoid SSRI withdrawal syndrome. 4. Noncompliance: Discussed importance of compliance with the therapy, risks associated with intermittent dosing of anticoagulant particularly Eliquis. 5. Lupus anticoagulant presence: senior living anticoagulation is indicated in this patient. MTDD
--- OUTSIDE RECORDS SUMMARY | 2020-09-14 19:16 | CCD ---
Author Author [facility] Organization [facility] Address Unknown Phone Unavailable Care Team Providers Care Last Sawyer Name Role Phone Mary Christopher TRAIN STATION AGENT Unavailable Unavailable FlumanMary TRAIN STATION AGENT Unavailable Unavailable FlumanMary TRAIN STATION AGENT Unavailable Unavailable Maring, Renaldo PA Unavailable Unavailable [...] is protected by Article 27-F of the [facility] Public Health law. If you continue you may have access to information: Regarding HIV / AIDS; Provided by facilities licensed or operated by the [facility] Office of Mental Health; or Provided by the [facility] Office for People With Developmental Disabilities. If such information is present, then the following [facility] mandated warning applies: This information has been [...] law may result in a fine or correction sentence or both. A general authorization for [...] EST - 08/28/2020 08:48:53 AM EST DocuTap ([facility] ) Unknown [address] [facility] [address] [place] [address] 08/22/2020 12:00:00 AM EST eCW1 ([facility]) Unknown [address] [facility] [place] [address] 08/19/2020 12:00:00 AM EST eCW1 ([facility]) Outpatient Attender: Mary JOHNSON 05/28/2020 09 :34:00 AM EST FULT CO-FIT X 2 ASMT [facility] FULT CO-FIT X 2 ASMT Unknown [address] [facility] [place] [address] 02/07/2020 12:00:00 AM EDT eCW1 ([facility]) Outpatient [address] [facility] [place] [address] 01/16/2020 12:00:00 AM EDT eCW1 ([facility]) Medications Medication Brand Name Start Date Product [...] AM EDT active Eliquis 5 MG eCW1 ([facility]) apixaban 5 MG Oral Tablet [Eliquis] Eliquis 5 MG Eliquis 5 M G 02/07/2020 12:00:00 AM EDT active Eliquis 5 MG eCW1 ([facility]) apixaban 5 MG Oral Tablet [Eliquis] Eliquis 5 MG Eliquis 5 M G 02/07/2020 12:00:00 AM EDT active Eliquis 5 MG eCW1 ([facility]) apixaban 5 MG Oral Tablet [Eliquis] Eliquis 5 MG Eliquis 5 M G 02/07/2020 12:00:00 AM EDT active Eliquis 5 MG eCW1 ([facility]) 20 mg 01/17/2020 12:00:00 AM EDT tablet [...] type / Coverage type Policy ID Covered green party ID Covered green party's relationship to mix Policy Mix Plan Information [facility] 306 [id number] UNK2 [id number] [facility] PPO 306 [id number] UNK2 [id number] [facility] PPO 306 [id number] UNK2 [id number] E&V ENERGY emp [id number] Employee [id number] SELF PAY [facility] BC-BS PPO 306 [id number] SP [id number] [place] [id number] SP [id number] SELF PAY ONLY [id number] SP [id number] [facility] [id number] SP [id number] MERITAIN [id number] SP [id number] 2 LIF[employer]IME BENEFIT [employer] [id number] SP [id number] MERITAIN U [id number] Self [id number] 2 Storee [facility] [id number] [facility] ial Insurance [id number] ID IDENTIFICATION [id number] Other In surance [id number] MERITAIN [id number] SP [id number] 2 ANSI-Not a Secondary Insurance [id number] ANSI-Not a Secondary Insurance [id number] ANSI-Not a Secondary Insurance [id number] LIFETIME BENEFIT SOLUTIONS [id number] SP [id number] ANSI-Not a Secondary Insurance [id number] ANSI-Not a Secondary Insurance [id number] [facility] Medicaid Medicaid [id number] Self [id number] Lifetime Benefit Solution Commercial [id number] Self [id number] ANSI-Not a Secondary Insurance [id number] LIFETIME BENEFIT SOLUTIONS [id number] SP [id number] LIFETIME BENEFIT SOLUTIONS [id number] SP [id number] [facility] Medicaid Medicaid Self GHI FAMILY HLTH PLUS [id number] SP [id number] MEDICAID [id number] SP [id number] Problems, Conditions, and Diagnoses Code Display Name Description Problem Type Effective Dates Data Source(s) 36466679 Essential hypertension Essential hypertension Problem 02/12/2020 12:00:00 AM EDT MEDENT ([facility], ) D68.62 [id number] Lupus anticoagulant syndrome Problem 020 12:00:00 AM EDT eCW1 ([facility]) I87.2 [id number] Venous stasis dermatitis of left lower ex tremity Problem 01/16/2020 12:00:00 AM EDT eCW1 ([facility]) Results ID Date Data Source [id number] 06/27/2020 12:00:00 AM EST [place] Name Value Range Interpretation Code Description Data Nasra rce(s) Supporting Document(s) SARS-CoV-2 Ag [Presence] in Respiratory specimen by LOU with probe detection [facility] This lab was ordered by [facility] and reported by [facility]. ID Date Data Source [id number] 03/17/2020 12:00:00 AM EDT CHARTMAKER ([facility]) Name Value Range Interpretation Code Description Data Nasra rce(s) Supporting Document(s) SARS-CoV2 Rapid Antigen CHARTM CANDI ([facility]) This lab was ordered by [facility] and reported by [facility]. ID Date Data Source PT&APTT SUBSITUTION TESTS 02/12/2020 10:12:07 AM EDT eCW1 ([facility]) Name Value Range Interpretation Code Description Data Nasra rce(s) Supporting Document(s) 15.0 eCW1 ([facility]) 73.6 eCW1 ([facility]) 13.9 eCW1 ([facility]) 47.8 eCW1 ([facility]) ID Date Data Source Antiphospholipid Syndrome Comp 02/12/2020 10:12:02 AM EDT eC W1 ([facility]) Name Value Range Interpretation Code Description Data Nasra rce(s) Supporting Document(s) 41 eCW1 ([facility]) 53 eCW1 ([facility]) <10 eCW1 ([facility]) 0 eCW1 ([facility]) <10 eCW1 ([facility]) <10 eCW1 ([facility]) 39 eCW1 ([facility]) 66.4 eCW1 ([facility]) 18 eCW1 ([facility]) <10 eCW1 ([facility]) 41.9 eCW1 ([facility]) 40.3 eCW1 ([facility]) 78 eCW1 ([facility]) 134.0 eCW1 ([facility]) eCW1 ([facility]) 3.3 eCW1 ([facility]) 52.7 eCW1 ([facility]) ID Date Data Source CBC with Differential 01/17/2020 12:05:50 PM EDT eCW1 ([facility]) Name Value Range Interpretation Code Description Data Nasra rce(s) Supporting Document(s) 4.55 eCW1 ([facility]) 5.6 eCW1 ([facility]) 88.4 eCW1 ([facility]) 31.2 eCW1 ([facility]) 40.2 eCW1 ([facility]) 14.2 eCW1 ([facility]) 13.2 eCW1 ([facility]) 74.5 eCW1 ([facility]) 152 eCW1 ([facility]) 35.3 eCW1 ([facility]) 0.5 eCW1 ([facility]) 16.2 eCW1 ([facility]) 2.5 eCW1 ([facility]) 5.4 eCW1 ([facility]) 0.1 eCW1 ([facility]) 0.9 eCW1 ([facility]) 4.1 eCW1 ([facility]) 0.3 eCW1 ([facility]) 0.0 eCW1 ([facility]) ID Date Data Source Comprehensive Metabolic Profile (CMP) 01/17/2020 12:05:44 PM EDT eCW1 ([facility]) Name Value Range Interpretation Code Description Data Nasra rce(s) Supporting Document(s) 22 eCW1 ([facility]) 96 eCW1 ([facility]) 1.29 eCW1 ([facility]) > 60.0 eCW1 ([facility]) 140 eCW1 ([facility]) 108 eCW1 ([facility]) 4.0 eCW1 ([facility]) 26 eCW1 ([facility]) 8.8 eCW1 ([facility]) 44 eCW1 ([facility]) 26 eCW1 ([facility]) 97 eCW1 ([facility]) 0.6 eCW1 ([facility]) 7.0 eCW1 ([facility]) 3.9 eCW1 ([facility]) 1.3 eCW1 ([facility]) ID Date Data Source [id number] 01/17/2020 12:05:38 PM EDT eCW1 ([facility]) Name Value Range Interpretation Code Description Data Nasra rce(s) Supporting Document(s) Hemoglobin A1c/Hemoglobin.total in Blood 5.2 eCW1 ([facility]) Procedure Social History Code Duration Value Status Description Data Source(s ) Smoking 01/16/2020 12:00:00 AM EDT Never Smoker completed Never S moker eCW1 ([facility]) Smoking 01/16/2020 12:00:00 AM EDT Never Smoker completed Never S moker eCW1 ([facility]) Smoking 01/16/2020 12:00:00 AM EDT Never Smoker completed Never S moker eCW1 ([facility]) Smoking 01/16/2020 12:00:00 AM EDT Never Smoker completed Never S moker eCW1 ([facility]) Vital Signs ID Date Data Source UNK Name Value Range Interpretation Code Description Data Source(s) Body height 69 [in_i] 69 [in_i] [facility] ([facility], ) 5'9" Heart rate 68 /min 68 /min [facility] ([facility], ) Diastolic blood pressure 104 mm[Hg] 104 mm[Hg] MEDENT ([facility], ) Systolic blood pressure 155 mm[Hg] 155 mm[Hg] M EDENT ([facility], ) Diastolic blood pressure 88 mm[Hg] 88 mm[Hg] eCW1 ([facility]) Systolic blood pressure 130 mm[Hg] 130 mm[Hg] e CW1 ([facility]) Body temperature 96.7 [degF] 96.7 [degF] eCW1 ( [facility]) Respiratory rate 18 /min 18 /min eCW1 ([facility]) Heart rate 85 /min 85 /min eCW1 ([facility]) Body mass index (BMI) [Ratio] 38.31 kg/m2 38.31 kg/m2 W1 ([facility]) Body height [in_i] eCW1 ([facility]) Body weight 244.6 [lb_av] 244.6 [lb_av] eCW1 ([facility]) Patient Treatment Plan of Care Planned Activity Planned Date Details Description Data Source (s) apixaban 5 MG Oral Tablet [Eliquis] 02/07/2020 12:00:00 AM EDT eCW1 ([facility]) apixaban 5 MG Oral Tablet [Eliquis] 02/07/2020 12:00:00 AM EDT eCW1 ([facility]) apixaban 5 MG Oral Tablet [Eliquis] 02/07/2020 12:00:00 AM EDT eCW1 ([facility]) apixaban 5 MG Oral Tablet [Eliquis] 02/07/2020 12:00:00 AM EDT eCW1 ([facility])
[2020-09-14 21:55] VITALS: BP 176/92
[2020-09-14 23:46] LABS: CK-MB VALUE MASS 1.4 NG/ML (<3.6); MB/CK RELATIVE INDEX 1.71 (< OR =4); TROPONIN I 0.08 NG/ML (< 0.10)
[2020-09-15] VITALS: BP 158/74
[2020-09-15 04:00] VITALS: BP 144/90
[2020-09-15 06:14] LABS: HEMATOCRIT 38.6 % (42.0-52.0); HEMOGLOBIN 13.1 g/dl (13.5-17.5); MEAN CORPUSCULAR HEMOGLOBIN 29.6 pg (27.0-33.0); MEAN CORPUSCULAR HGB CONC 33.9 g/dl (32.0-36.5); MEAN CORPUSCULAR VOLUME 87.3 fl (80.0-96.0); RED BLOOD COUNT 4.42 10^6/uL (4.30-6.10); WHITE BLOOD COUNT 5.1 10^3/uL (4.0-10.0)
[2020-09-15 06:19] LABS: PLATELET COUNT, AUTOMATED 93 10^3/uL (150-450)
[2020-09-15 06:33] LABS: BLOOD UREA NITROGEN 19 MG/DL (7-18); CALCIUM LEVEL 8.3 MG/DL (8.5-10.1); CARBON DIOXIDE LEVEL 25 MEQ/L (21-32); CHLORIDE LEVEL 109 MEQ/L (98-107); CREATININE FOR GFR 1.29 MG/DL (0.70-1.30); GLOMERULAR FILTRATION RATE > 60.0 (>60); GLUCOSE, FASTING 101 MG/DL (70-100); POTASSIUM SERUM 3.9 MEQ/L (3.5-5.1); SODIUM LEVEL 141 MEQ/L (136-145)
[2020-09-15 06:37] LABS: CK-MB VALUE MASS < 1.0 NG/ML (<3.6); CPK CREATINE PHOSPHOKINASE 69 U/L (39-308); MB/CK RELATIVE INDEX 1.45 (< OR =4); TROPONIN I 0.07 NG/ML (< 0.10)
[2020-09-15 07:36] VITALS: BP 164/90
[2020-09-15] MEDS ORDERED: LIDOCAINE 1% MDV 20ML VIAL As Ordered ONE (08:10)
[2020-09-15] MEDS ORDERED: ISOVUE-300 61% 50ML VIAL As Ordered ONE (08:10)
[2020-09-15] MEDS ORDERED: fentaNYL 100 MCG/2 ML INJECTION (J3010) As Ordered ONE (08:13)
[2020-09-15] MEDS ORDERED: MIDAZOLAM INJ 2MG/2ML VIAL (J2250 PER 1MG) As Ordered ONE (08:14)
--- NOTE | 2020-09-15 08:37 | CR.PDOC ---
General Date of Consultation: Sep 15, 2020 Consultation REASON FOR CONSULTATION/CHIEF COMPLAINT: Recurrent DVT and PE HISTORY OF PRESENT ILLNESS: This is a very pleasant 45-year-old gentleman status post DVT suspected left lower extremity veins resulting in PE proximally 3 years ago, restarted on eliquis maximally 6 months ago with some reported noncompliance, now with DVT in the right lower extremity and acute on chronic PE. I reviewed the patient's echo results. They were unable to determine his pulmonary artery pressures, or right atrial pressures. However, the majority of the echo results appear fairly normal aside from some right ventricular enlargement. I reviewed the patient's CTA of the chest. I do not see significant right atrial enlargement on CTA. He has some small distal emboli in the right pulmonary arteries, and some small distal PE in the left distal arteries. No main pulmonary artery thrombus noted. I reviewed his right lower extremity venous duplex. He has thrombus in the distal femoral vein extending in the p opliteal vein and likely the calf veins. His swelling in the right lower extremity is noticeable, but not significantly worse in the left lower extremity. He has some posttraumatic changes in the left lower extremity with some brawny skin changes on the cath. No pitting edema in either lower extremi ty. No significant pain in the right lower extremity. There is concern for noncompliance with the patient taking his eliquis. Since he has had recurrent DVT and recurrent PE, I discussed with him and Dr. Chen the risks benefits alternatives to an IVC filter. I do not think at this time the patient meets criteria for TPA thrombolysis of either the DVT or PE. After a long discussion with the patient, he is agreeable to proceed for IVC filter placement in 6 months, the patient is reporting greater compliance with his eliquis and has no further issues, we may be able to consider discontinuing the IVC filter. He is agreeable to this plan. ALLERGIES: Please see below. HOME MEDICATIONS: Please see below. PAST MEDICAL HISTORY: DVT PE PAST SURGICAL HISTORY: Cholecystectomy EGD FAMILY HISTORY: Cancer SOCIAL HISTORY: Denies tobacco or illicit drug use. Occasional alcohol use. Patient is . REVIEW OF SYSTEMS: CONSTITUTIONAL: Denies fevers or chills HEENT: Denies vision or hearing changes CARDIOVASCULAR: Denies chest pain RESPIRATORY: Positive shortness of breath with exertion GENITOURINARY: Denies dysuria MUSCULOSKELETAL: Positive swelling right lower extremity GASTROINTESTINAL: Denies nausea vomiting diarrhea SKIN: Denies skin cancer or rashes or wounds NEUROLOGICAL: Denies headache seizures or stroke PSYCHIATRIC: Denies anxiety depression ENDOCRINE: Denies diabetes or thyroid disease HEMATOLOGIC/LYMPHATIC: Denies known history of hypercoagulable state ALLERGIC/IMMUNOLOGIC: Denies PHYSICAL EXAMINATION: VITAL SIGNS: Please see below. GENERAL APPEARANCE: Medically stable no acute distress HEENT: Normocephalic TMI RESPIRATORY: Clear to auscultation CARDIOVASCULAR: Regular rate and rhythm ABDOMEN: Soft nontender EXTREMITIES: Brawny darkening of the skin at the calf and ankle of the left lower extremity, mild swelling bilateral lower extremities worse on the right NEUROLOGICAL: Alert and oriented 3 moves all extremities equally PSYCHIATRIC: Pleasant and cooperative LABORATORY DATA: Please see below. ASSESSMENT/PLAN: Very pleasant 45-year-old gentleman with new DVT right lower extremity, history of DVT left lower extremity and recurrent PE 1. Okay to convert patient from heparin drip to eliquis today. 2. Elevate bilateral lower extremity is above the level of the heart to help with swelling and venous return. 3. Recommend bilateral lower extremity 20-30 mm compression stockings daily. 4. Patient currently does not meet criteria for TPA thrombolysis of his right lower extremity DVT or small peripheral PEs. 5. We will place an IVC filter due to history of noncompliance with eliquis and recurrent PE DVT 6. The patient should have a repeat venous duplex in 3 months to check the status of DVT. 7. We would like to see the patient back in 3-6 months to discuss options with him for IVC filter removal if he is having increased compliance with his ronni ruma, versus leaving it in place if he is still having challenges. We appreciate the opportunity to participate in the care of this patient. Vital Signs/I&O Vital Signs Date Time Temp Pulse Resp B/P (MAP) Pulse Ox O2 Delivery O2 Flow Rate FiO2 09/15/20 08:05 98.5 65 18 96 Room Air 09/15/20 07:36 164/90 (114) I&O- Last 24 Hours up to 6 AM 09/15/20 06:00 Intake Total 42 ml Balance 42 ml Laboratory Data Labs 24H Laboratory Tests 2 09/14/20 13:31: Prothrombin Time 15.5H, Prothromb Time International Ratio 1.20, Activated Partial Thromboplast Time 90.8H 09/14/20 13:32: Immature Granulocyte % (Auto) 1.0, Neutrophils (%) (Auto) 80.5H, Lymphocytes (%) (Auto) 12.0L, Monocytes (%) (Auto) 4.9, Eosinophils (%) (Auto) 1.2, Basophils (%) (Auto) 0.4, Neutrophils # (Auto) 5.5, Lymphocytes # (Auto) 0.8L, Monocytes # (Auto) 0.3, Eosinophils # (Auto) 0.1, Basophils # (Auto) 0.0, Nucleated Red Blood Cells % (auto) 0.0, Immature Platelet Fraction 5.1, Anion Gap 10, Glomerular Filtration Rate > 60.0, Calcium Level 8.5, Total Bilirubin 0.8, Direct Bilirubin 0.2, Aspartate Amino Transf (AST/SGOT) 16, Alanine Aminotransferase (ALT/SGPT) 33, Alkaline Phosphatase 110, Total Creatine Kinase 116, Creatine Kinase MB 1.8, Creatine Kinase MB Relative Index 1.55, Troponin I 0.09, IG-Jqy-S-Type Natriuretic Peptide 793H, Total Protein 6.4, Albumin 3.6, Albumin/Globulin Ratio 1.3 09/14/20 18:50: Activated Partial Thromboplast Time 118.1H 09/14/20 23:02: Activated Partial Thromboplast Time 102.3H, Total Creatine Kinase 82, Creatine Kinase MB 1.4, Creatine Kinase MB Relative Index 1.71, Troponin I 0.08 09/15/20 05:53: Nucleated Red Blood Cells % (auto) 0.0, Activated Partial Thromboplast Time 123.6*H, Anion Gap 7L, Glomerular Filtration Rate > 60.0, Calcium Level 8.3L, Total Creatine Kinase 69, Creatine Kinase MB < 1.0, Creatine Kinase MB Relative Index 1.45, Troponin I 0.07 CBC/BMP Laboratory Tests 09/14/20 13:32 09/15/20 05:53 Microbiology Microbiology 09/14/20 Respiratory Virus Panel (PCR) ([facility]) - Final, Complete Allergies Coded Allergies: No Known Allergies (Unverified , 04/07/18) Home Medications Scheduled Apixaban (Eliquis) 5 Mg Tab, 5 MG PO BID, (Reported) Omeprazole (Omeprazole) 40 Mg Cap, 40 MG PO DAILY, (Reported) Paroxetine HCl (Paroxetine HCl) 20 Mg Tab, 20 MG PO DAILY, (Reported) FATUMA GARCIA MD Sep 15, 2020 08:37
[2020-09-15] MEDS ORDERED: PARoxetine 20MG TABLET PO SCH (09:00)
[2020-09-15] MEDS ORDERED: OMEPRAZOLE 20 MG CAP PO SCH (09:00)
[2020-09-15] MEDS ORDERED: APIXABAN 5 MG TAB (ELIQUIS) PO SCH (09:00)
--- NOTE | 2020-09-15 09:13 | ROOPDOC ---
[facility] Report Of Operation Report of Operation DATE OF PROCEDURE: 09/15/20 PREPROCEDURE DIAGNOSES: Recurrent DVT and PE on anticoagulation POSTPROCEDURE DIAGNOSES: Same PROCEDURE: 1. Ultrasound-guided access femoral vein 2. Vena cava gram 3. Placement of an infrarenal Option Elite inferior vena cava filter 4. Completion venogram SURGEON: Fatuma Oliva MD ANESTHESIA: Local anesthesia 4 mL lidocaine. Moderate intravenous conscious sedation was supervised by Dr. Oliva. The patient was independently monitored by registered nurse assigned to the Department of radiology using automated blood pressure, EKG, and pulse oximetry. The detailed sedation record is permanently stored in the hospital information system. The following is a brief sedation record: Start time 08:42, stop time 08:57, Versed 1 mg IV, fentanyl 50 g IV. CONTRAST: 42 mL of Isovue-300 INDICATION FOR PROCEDURE: This is a very pleasant 45-year-old gentleman with a history of left lower extremity DVT and PE, now with a new right lower extremity DVT and acute on chronic PE with shortness of breath on exertion while on anticoagulation. Risks benefits and alternatives to IVC filter were explained to the patient needs agreeable to proceed. Informed consent was obtained. INTERPRETATION: 1. The femoral vein is widely patent on color and grayscale ultrasound. 2. The vena cava is widely patent and free from thrombus. The renal veins are identified. 3. IVC filter is in good placement infrarenal, no significant tilt to the filter, and the vena cava is patent with no extravasation noted. REPORT OF OPERATION: The patient was brought to the angiographic suite in stable condition. His bilateral groins were prepped and draped in a sterile fashion. A timeout was performed. Sedation was administered without complication. Local anesthesia was administered to the skin and subcutaneous tissue over the femoral vein. A microneedle was used to access the vein under ultrasound guidance. A wire was passed through this access needle was removed. A 4 Georgian sheath was placed and flushed with saline. A Glidewire was advanced into the IVC and then the SVC under fluoroscopic guidance. The sheath was removed and exchanged for the sheath for the IVC filter placement and this was flushed with saline. This was advanced into the distal IVC proximal to the iliac bifurcation. Vena cava gram was performed, please see interpretation above. We then advanced the proximal end of the sheath over the wire to just below the renal veins. The IVC filter was then advanced through the sheath until the hook was just outside the sheath. The sheath was then retracted to deploy the filter. We then performed a vena cava gram through the sheath and the filter was in good position distal to the renal veins with no extravasation and no significant tilt. We retracted sheath distally towards the iliac bifurcation and the final vena cava gram was performed and we saw good flow through the entire vena cava, no thrombus, no perforation and the filter was in good position with good flow through the renal veins. We removed the sheath and all pressure for 10 minutes and good hemostasis was noted. The patient was then taken to recovery in stable condition. He tolerated the procedure and the sedation well. ESTIMATED BLOOD LOSS: Approximately 5 mL. COMPLICATIONS: None. PLAN: Okay to administer patient's morning dose of eliquis. Okay to resume pre-procedure diet and medications. Okay for discharge from a vascular standpoint after 2 hours of bedrest postprocedure is patient is hemodynamically stable, ambulating without difficulty, and no bleeding or hematoma present at the access site. It is okay for him to remove the dressing in the morning and shower and leave the access site open to air. We would like to see him back in 3-6 months to discuss options for possible filter removal versus continuation. We appreciate the opportunity to participate in the care of this patient. FATUMA OLIVA MD Sep 15, 2020 09:13
[2020-09-15] MEDS ORDERED: MIDAZOLAM INJ 2MG/2ML VIAL (J2250 PER 1MG) IV ONE (10:00)
[2020-09-15] MEDS ORDERED: fentaNYL 100 MCG/2 ML INJECTION (J3010) IV ONE (10:00)
[2020-09-15 10:05] VITALS: BP 135/93
--- NOTE | 2020-09-15 11:46 | DSES ---
DISCHARGE SUMMARY DATE OF ADMISSION: 09/14/2020 DATE OF DISCHARGE: 09/15/2020 PRINCIPAL DIAGNOSIS: Pulmonary embolism. SECONDARY DIAGNOSES: 1. Deep vein thrombosis (DVT) right lower extremity. 2. Noncompliance. 3. History of depression. 4. History of gastroesophageal reflux disease (GERD). HISTORY: Antione Sanon was admitted with a pulmonary embolism and a DVT of his right lower extremity. He was on Eliquis, which he was not taking consistently. Admitted for further evaluation. HOSPITAL COURSE: The patient was admitted to a PCU bed. I communicated with Dr. Oliva of vascular surgery who agreed to see the patient in consultation. A stat echocardiogram was ordered and the essence of the results were transmitted to me by cardiology. Right ventricle dilatation was noted, but they we are unable to determine right-sided pressures. Dr. Oliva did not feel would benefit from intervention at the DVT or pulmonary embolism specifically, as they were distal. She did, however, agree that he would benefit from an IVC filter with the history of noncompliance with his anticoagulant. DISCHARGE PHYSICAL EXAMINATION: Today his vital signs are stable. He is now getting his filter in. He will be discharged afterwards. DISCHARGE MEDICATIONS: He will resume his Eliquis 5 mg b.i.d., Paxil 20 mg daily, Prilosec 40 mg daily. DISCHARGE DIAGNOSES: As tolerated. DISCHARGE ACTIVITY: As tolerated. DISCHARGE FOLLOW-UP: He will follow-up with CARLTON Palma in the family practice office in [place] in a week. Follow-up with Dr. Oliva per her office. The importance of compliance with his Eliquis therapy was stressed to the patient and he expressed understanding of this.
[2020-09-15 12:00] VITALS: BP 156/92
--- NOTE | 2020-09-15 13:12 | ECHO ---
DATE OF PROCEDURE: 09/14/2020 Age: 45 Gender: Male Height: 173 cm Weight: 109 kg REFERRING PHYSICIAN: Dash Chen MD INDICATION: Pulmonary embolism. MEASUREMENTS: Aorta 3.4 cm LA 4.2 IVS 1.1 cm LV diastolic 4.5 cm LV systolic 3.1 cm LVPW 1.3 cm RV 4.3 cm in parasternal long axis view IVC 1.7 cm DOPPLER MEASUREMENT Mitral E wave velocity 83 Mitral A 73 E prime septal 7.7 FINDINGS: This study is of acceptable technical quality. There are good parasternal views, but limited apical views. Left ventricle has normal size and systolic function, I estimate LVEF 65% to 70%. No segmental wall motion abnormalities are appreciated. Right ventricle appears dilated and mildly hypokinetic. Left atrium is mildly enlarged. Right atrium is probably normal. All four cardiac valves were reasonably well seen and appear normal. No pericardial effusion is noted. Inferior vena cava is of relatively small caliber and appropriately collapses with inspiration indicative or normal central venous pressure. The aortic root is normal. Aortic arch is also normal. Abdominal aorta was not well visualized. Doppler interrogation reveals normal function of all four cardiac valves without significant stenosis or insufficiency. Mitral inflow pattern and tissue Doppler imaging of the mitral annulus reveal likely normal diastolic function. CONCLUSIONS: 1. Study is of acceptable technical quality, underlying sinus rhythm. 2. Normal LV size and systolic function, likely normal diastolic function. 3. Dilated hypokinetic right ventricle. , 4. No valvular disease. 5. Normal central venous pressure. 6. Unable to estimate pulmonary artery pressure. Results of the study were communicated to Dr. Chen. [facility]
== END 2020-09-15 15:17 | disposition home or self-care (01) | DRG 197 ==
LOC: M ED 12:58 → M ED INP 17:48 → M PCU 21:54
PROVIDERS: ADMIT Family Medicine; ATTEND Family Medicine
PROC: 06H03DZ Insertion of Intraluminal Device into Inferior Vena Cava, Percutaneous Approach (ICD-10-PCS; principal; 2020-09-15 08:00)
DX: I82.411 Acute embolism and thrombosis of right femoral vein (principal); I26.99 Other pulmonary embolism without acute cor pulmonale; D68.62 Lupus anticoagulant syndrome; Z91.14 Patient's other noncompliance with medication regimen; F32.9 Major depressive disorder, single episode, unspecified; K21.9 Gastro-esophageal reflux disease without esophagitis; Z79.01 Long term (current) use of anticoagulants; Z79.899 Other long term (current) drug therapy

== ENCOUNTER → 2020-10-03 | Outpatient (REF) | payer BC ==
[2020-10-03 13:43] LABS: CALCIUM LEVEL 9.5 MG/DL (8.5-10.1); CREATININE FOR GFR 1.58 MG/DL (0.70-1.30); GLOMERULAR FILTRATION RATE 50.5 (>60); POTASSIUM SERUM 4.4 MEQ/L (3.5-5.1)
== END ==
LOC: M SFHCADAM 07:59
PROVIDERS: ATTEND Physician Assistant
DX: I10 Essential (primary) hypertension (principal)

== ENCOUNTER → 2020-11-13 | Outpatient (REF) | payer BC ==
[2020-11-13 12:48] LABS: HEMATOCRIT 40.8 % (42.0-52.0); HEMOGLOBIN 14.1 g/dl (13.5-17.5); MEAN CORPUSCULAR HEMOGLOBIN 30.6 pg (27.0-33.0); MEAN CORPUSCULAR HGB CONC 34.6 g/dl (32.0-36.5); MEAN CORPUSCULAR VOLUME 88.5 fl (80.0-96.0); PLATELET COUNT, AUTOMATED 122 10^3/uL (150-450); RED BLOOD COUNT 4.61 10^6/uL (4.30-6.10); WHITE BLOOD COUNT 5.4 10^3/uL (4.0-10.0)
[2020-11-13 13:23] LABS: ALBUMIN 4.1 GM/DL (3.2-5.2); CALCIUM LEVEL 9.3 MG/DL (8.5-10.1); CREATININE FOR GFR 1.45 MG/DL (0.70-1.30); GLOMERULAR FILTRATION RATE 55.8 (>60); POTASSIUM SERUM 4.2 MEQ/L (3.5-5.1)
== END ==
LOC: M SFHCADAM 07:55
PROVIDERS: ATTEND Physician Assistant
DX: I82.409 Acute embolism and thrombosis of unspecified deep veins of unspecified lower extremity (principal); N17.9 Acute kidney failure, unspecified

== ENCOUNTER 2020-12-11 14:21 | Inpatient (IN) | payer BC ==
[~2020-12-11] VITALS: Ht 175.3 cm; Wt 104.0 kg
--- NOTE | 2020-12-11 15:04 | REP ---
INDICATION: CVA - Nursing interventions must not delay CT. COMPARISON: None. TECHNIQUE: 4.5 mm contiguous transaxial sections were obtained from the skull base to the cerebral convexities with thin cuts through the posterior fossa without the administration of intravenous contrast. FINDINGS: The ventricles and sulci are consistent with the patient's age. There are no extra-axial fluid collections. There is no mass effect. The deep cerebral white matter is consistent with the patient's age. The orbital and petrous structures, cerebellopontine angles, and posterior fossa are unremarkable. The sella turcica, cavernous, and paracavernous structures are essentially unremarkable. The visualized portions of the paranasal sinuses and mastoid air cells are clear. Images of the skull base show no gross abnormality. IMPRESSION: Essentially unremarkable CT examination of the brain. <Electronically signed by Franky Blake > 12/11/20 1500
--- NOTE | 2020-12-11 15:08 | REP ---
INDICATION: CVA. COMPARISON: Comparison chest x-ray September 14, 2020. TECHNIQUE: Portable upright AP chest radiograph. FINDINGS: The lungs are well inflated and free of infiltrate. Pleural angles are sharp. Heart size is normal. Pulmonary vasculature is not increased. IMPRESSION: No active disease. <Electronically signed by Elías Mckeon > 12/11/20 [id number]
[2020-12-11 15:38] LABS: BASO % 0.3 % (0.0-1.0); EOS # 0.1 10^3/uL (0.0-0.5); EOS % 0.7 % (0.0-3.0); HEMOGLOBIN 13.9 g/dl (13.5-17.5); LYMPH # 0.8 10^3/uL (1.5-5.0); LYMPH % 11.5 % (24.0-44.0); MEAN CORPUSCULAR HEMOGLOBIN 30.8 pg (27.0-33.0); MEAN CORPUSCULAR HGB CONC 35.6 g/dl (32.0-36.5); MEAN CORPUSCULAR VOLUME 86.5 fl (80.0-96.0); MONO # 0.3 10^3/uL (0.0-0.8); MONO % 4.8 % (2.0-8.0); NEUTROPHILS # 5.7 10^3/uL (1.5-8.5); NEUTROPHILS % 81.8 % (36.0-66.0); PLATELET COUNT, AUTOMATED 123 10^3/uL (150-450); RED BLOOD COUNT 4.51 10^6/uL (4.30-6.10)
[2020-12-11 15:53] LABS: CK-MB VALUE MASS 1.1 NG/ML (<3.6); MB/CK RELATIVE INDEX 1.04 (< OR =4); TROPONIN I 0.09 NG/ML (< 0.10)
[2020-12-11] MEDS ORDERED: ISOVUE-370 76% 100ML VIAL As Ordered ONE (16:11)
--- NOTE | 2020-12-11 16:57 | REP ---
INDICATION: CVA - Nursing interventions must not delay CT. COMPARISON: Comparison is made with today's CT study of the brain.. TECHNIQUE: CT contrast dose: 100 ml of intravenous Isovue 370. CT technique: Helical scanning is acquired. 2 mm axial images are reformatted. Maximal intensity projection and multiplanar re-formation images are generated along with 3-D surface rendered color imaging which is viewed rotational. FINDINGS: There is good opacification of the arterial tree. The distal vertebral arteries are widely patent. Basilar artery is unremarkable. Posterior cerebral and superior cerebellar vessels are intact. The distal internal carotid arteries are unremarkable and symmetric. Distal cervical segments of the ICAs are unremarkable. Anterior middle cerebral arteries are intact bilaterally. No vessel cutoff is seen. There is no evidence of medina aneurysm or arteriovenous malformation. The dural sinuses are patent. No venous abnormality is observed. IMPRESSION: Unremarkable CT angiography of the brain. <Electronically signed by Elías Mckeon > 12/11/20 [id number]
--- NOTE | 2020-12-11 16:59 | REP ---
INDICATION: CVA - Nursing interventions must not delay CT COMPARISON: None. TECHNIQUE: Contrast enhancement dose is 100 mL of intravenous Isovue 370. Helical scanning is acquired. 2 mm axial images are re-formatted. Coronal and sagittal MPR images are generated. Coronal and sagittal MIP and oblique MPR images are generated. 3D surface rendered images are generated and viewed rotationally. FINDINGS: There is good opacification of the arterial tree. The visualized aortic arch is unremarkable. Great vessel origins are intact. The vertebral artery origins are unremarkable. Vertebral arteries are patent and symmetric. The the common carotid arteries are widely patent. Carotid bifurcations are spur smooth. No stenosis or occlusion is seen. The cervical segments of the internal carotid artery show no evidence of focal stenosis or occlusion. 3D surface rendered images and maximum intensity projection images show no additional abnormality. IMPRESSION: No focal stenosis or occlusion seen. Unremarkable CT angiography of the neck. <Electronically signed by Elías Mckeon > 12/11/20 [id number]
[2020-12-11] MEDS ORDERED: VALS1TAB66 PO (18:02)
[2020-12-11] MEDS ORDERED: OMEP-218 PO (18:02)
--- NOTE | 2020-12-11 21:21 | REPVR ---
PROCEDURE INFORMATION: Exam: MR Head Without Contrast Exam date and time: 12/11/2020 5:47 PM Age: 45 years old Clinical indication: Numbness / parasthesia; Left; Additional info: Lle numbness R/O CVA TECHNIQUE: Imaging protocol: MR of the head without contrast. COMPARISON: CT Head without contrast 12/11/2020 2:46 PM FINDINGS: Brain: There is restricted diffusion in the left side of the vermis series 304 image 1, frames 10-13 with corresponding hypointensity in similar location on the ADC map series 303, image 1 frames 10-13. There are 3 foci of restricted diffusion medial right parietal subcortical. There are several less hyperintense foci in the right centrum semiovale. There is a lesion with a T1 hyperintense rim right cerebellar hemisphere measuring 1.3 cm. Series 401, image 1 frame 6. Also on the T1 weighted sagittal image several hyperintense foci are noted along the cerebellar folia. Edema is seen in the vermis. There is a probable prior lacunar infarction in the left cerebellar hemisphere. Abnormal signal is seen in these locations on the T2 and FLAIR sequences. There is no acute intracranial hemorrhage. On the diffusion sequence there is subtle increased signal in the left mesial temporal lobe series 304, image 1 frame 11 as well as within the left and to a lesser degree right hippocampus and focus of restricted diffusion left internal capsule greater than right and greater than would be expected hyperintensity in the medial frontal gyri in insular cortices. There is also subtle increased signal in the left mesial temporal lobe and perhaps increased volume on the FLAIR sequence series 601, image 1 frame 10. No definite acute hemorrhage is seen on the FLAIR sequence. Several hypointense foci are seen in the left frontal subcortical white matter series 701, image 1 frame 19 and to a lesser degree on the right which may represent prior microhemorrhages. Cerebral ventricles: No significant ventriculomegaly. Bones/joints: Unremarkable. Paranasal sinuses: Minimal air-fluid level is seen in the sphenoid sinus. Opacification left frontal sinus. Mastoid air cells: Mastoid air cells appear clear. Orbital cavity: Unremarkable. Soft tissues: Unremarkable. IMPRESSION: Abnormal appearance of the brain with areas of probable acute infarction involving the vermis on the left and subcortical foci right medial parietal. There may be subacute infarctions right cerebellar hemisphere and subcortical right centrum semiovale however there is also abnormal signal in the mesial left temporal lobe and possibly within both hippocampi therefore these findings could also be due to paraneoplastic syndrome or cerebritis/encephalitis involving the subarachnoid space which could also account for the abnormal appearance of the cerebellar folia with areas of hyperintensity on the T1 weighted sequence which can also be seen with blood products, melanoma among other etiologies. Left frontal sinusitis. Electronically signed by: Yeny Perry On 12/11/2020 21:21:18 PM
[2020-12-11] MEDS: APIXABAN 5 MG TAB (ELIQUIS) PO SCH (21:39)
[2020-12-11 22:24] VITALS: BP 128/89
[2020-12-11] MEDS ORDERED: LABETALOL 100MG/20ML VIAL IV PRN (22:40)
--- NOTE | 2020-12-11 22:44 | IPNPDOC ---
Text Note Date of Service The patient was seen on 12/11/20. NOTE I discussed the MRI findings w (Neurologist recreation professor overnight), we will: - aim for a SBP btwn 140 to 180 (will add IV labetalol PRN) - add ASA 81mg daily to DOAC - f/u Echo w bubble study - repeat the hypercoag work up. VS,Fishbone, I+O VS, Fishbone, I+O Laboratory Tests 12/11/20 14:37 Vital Signs Date Time Temp Pulse Resp B/P (MAP) Pulse Ox O2 Delivery O2 Flow Rate FiO2 12/11/20 22:15 75 18 169/75 (106) 94 Room Air 12/11/20 21:15 98.1 CAROL BAUMANN MD December 11, 2020 22:44
[2020-12-11] MEDS ORDERED: ASPIRIN 81 MG CHEW TABLET PO ONE (23:00)
[2020-12-12 02:00] VITALS: BP 121/79
[2020-12-12 06:00] VITALS: BP 124/81
[2020-12-12 06:32] LABS: CALCIUM LEVEL 8.5 MG/DL (8.5-10.1); CHOLESTEROL RISK RATIO 3.833 (<5); CREATININE FOR GFR 1.46 MG/DL (0.70-1.30); GLOMERULAR FILTRATION RATE 55.3 (>60); POTASSIUM SERUM 4.1 MEQ/L (3.5-5.1)
[2020-12-12] MEDS ORDERED: NS 1,000 ML IV SCH (08:40)
[2020-12-12 08:55] VITALS: BP 146/94
[2020-12-12] MEDS: PANTOPRAZOLE 40MG TAB (PROTONIX) PO SCH (09:09)
[2020-12-12] MEDS: APIXABAN 5 MG TAB (ELIQUIS) PO SCH ×2 (09:09→20:18)
[2020-12-12] MEDS: ASPIRIN 81 MG CHEW TABLET PO SCH (09:09)
--- NOTE | 2020-12-12 10:01 | HPE ---
HISTORY AND PHYSICAL DATE OF ADMISSION: 12/11/2020 CHIEF COMPLAINT: Left leg numbness which started at 9 a.m. this morning. HISTORY OF PRESENT ILLNESS: Mr. Sanon is a 45-year-old gentleman who has a past medical history notable for lupus anticoagulant with multiple pulmonary embolisms and lower extremity deep vein thromboses (DVTs) in the past. He is chronically on Eliquis, anxiety, gastroesophageal reflux disease (GERD) as well as hypertension. The patient presents to the emergency room today with complaints of left leg numbness which began at 9 a.m. The patient states that he woke up around 6:30 a.m. and felt fine. Around 9 a.m., when he was sitting at his table doing some work, he experienced some left leg numbness which he characterizes as numbness starting from his butt all the way down to his left foot. He got up and tried to walk it off as he thought he was just pinching a nerve but as he was walking he felt like he was stumbling and felt drunk. Throughout the day his symptoms did not improve and he subsequently presented to the emergency room to be evaluated. He was outside the window for any tPA. His NIH score was zero on presentation to the emergency department (ED). He did complain of some transient left upper extremity numbness while in the emergency room but that has now resolved. A CT of the head without contrast was obtained, which was negative; CTA of the head and neck were also unremarkable, not showing any significant stenosis. Chest x-ray showed no acute pathology. His EKG showed a normal sinus rhythm. He was noted to be just mildly hypertensive with a blood pressure of 159/101. He did not require any medications to bring his blood pressure down. He has been compliant with his Eliquis therapy and denies missing any doses. He does not use tobacco. He occasionally drinks some [employer] lemonade. Aside from this, the patient has no other stroke risk factors. There is no family history of stroke or cardiovascular disease. ALLERGIES: No known drug allergies (NKDA). CURRENT MEDICATIONS AT HOME: 1. Eliquis 5 mg twice a day 2. Paroxetine 3. Protonix 4. Valsartan PAST SURGICAL HISTORY: Notable for cholecystectomy. SOCIAL HISTORY: The patient is . 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 He occasionally uses alcohol. He has three kids. He is a full code. is his second medical decision maker. Does not use any drugs. FAMILY HISTORY: Unremarkable for any chronic illnesses from what the patient tells me. REVIEW OF SYSTEMS: Twelve systems reviewed with the patient and are otherwise negative. PHYSICAL EXAMINATION: VITAL SIGNS: The patient's temperature is 97.9, pulse is 80, respirations are 20. Blood pressure presently is 152/97. O2 sat is 92% on room air. GENERAL APPEARANCE: The patient is alert and oriented x3. He appears in no acute distress. Speech is slow and he has no facial asymmetry. HEENT: Head is atraumatic. Pupils are symmetric and react to light. Oropharynx is clear without exudate, erythema or thrush. NECK: Supple. LUNGS: Sounds are present bilaterally without rales, wheezes or rhonchi. HEART: S1, S2; no audible murmurs, rubs or gallops. ABDOMEN: Soft, nontender, nondistended with active bowel sounds. EXTREMITIES: Without any significant cyanosis, clubbing or edema. The patient's gait was briefly observed when he was standing when I entered the room and he did not appear to have any stumbling and was able to return without difficulty back to the stretcher so that I could examine him. He reports some subjective numbness in the left lower extremity. The remainder of the extremities and torso are within normal limits with gross sensation. PERTINENT LABORATORIES: White count is 7, hemoglobin 13, hematocrit 39, platelet count is 123,000. CPK 106. Troponin 0.09. PTT is 99.5. PT is 16.5. COVID swab was negative. Glucose 112, sodium 139, potassium 4.1, chloride 107, bicarbonate 23, BUN is 19, creatinine is slightly elevated at 1.4. IMAGING STUDIES OBTAINED: Chest x-ray on view unremarkable. CT of the head without contrast showed no acute findings. CTA of the head and neck were also unremarkable. Please reference full reports for details. EKG showed normal sinus rhythm. IMPRESSION: 1. Left lower extremity numbness, rule out transient ischemic attack (TIA) versus neuropathy. 2. History of lupus anticoagulant with multiple pulmonary embolisms (PEs) and deep vein thromboses (DVTs) in the past. 3. Hypertension. 4. Anxiety disorder. PLAN: The patient will be admitted to an observation status with telemetry. He will have q. 4 neuro checks. Will continue his Eliquis at 5 mg twice a day. He had a normal echocardiogram two months ago so there is no need to repeat another. His CTA of the head an neck were fine without any evidence of any vascular stenosis or malformations. Will check a fasting lipid profile in the morning. We will allow for permissive hypertension at this time, and obtain an MRI of his brain without contrast in the morning. Should his imaging be negative, the patient can be discharged to follow up with his primary care physician (PCP). The patient will be a full code.
[2020-12-12 13:14] VITALS: BP 146/90
--- NOTE | 2020-12-12 13:48 | IPNPDOC ---
Subjective Date Seen The patient was seen on 12/12/20. Subjective Chief Complaint/HPI R Jamar is doing well this morning he reports complete resolution of his symptoms. 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 Objective Physical Examination General Exam: Positive: Alert, No Acute Distress Eye Exam: Positive: PERRLA, Conjunctiva & lids normal, EOMI; Negative: Sclera icteric Neck Exam: Positive: Supple; Negative: JVD, thyromegaly Heart Exam: Positive: Rate Normal, Regular Rhythm, Normal S1, Normal S2; Negative: Murmurs, Rubs Telemetry: Positive: No significant arrhythmia Extremity Exam: Positive: Normal pulses; Negative: Clubbing, Cyanosis, Edema Neuro Exam: Positive: Normal Gait, Normal Speech, Cranial Nerves 3-12 NL, Reflexes 2+ Assessment /Plan Assessment # Acute Multi-infarct CVA - MRI results d/w patient - Echo pending - changed to inpatient - cleared by PT - baby asa added to eliquis - hypercoaguable w/u pending - will need DHARA, d/w Cardiology (BECKIE) unable to do today - start atorvastatin 40 mg qhs # Mild LEROY - IVFs x 24h, recheck BMP in am - holding losartan # HTN - holding losartan in setting of acute stroke # GERD - protonix # DVT ppx - eliquis Plan/VTE VTE Prophylaxis Ordered?: Yes VS, I&O, 24H, Fishbone Vital Signs/I&O Vital Signs Date Time Temp Pulse Resp B/P (MAP) Pulse Ox O2 Delivery O2 Flow Rate FiO2 12/12/20 13:14 98.0 65 18 146/90 (108) 96 Room Air I&O- Last 24 Hours up to 6 AM 12/12/20 06:00 Intake Total 360 ml Output Total 0 ml Balance 360 ml Laboratory Data 24H LABS Laboratory Tests 2 12/11/20 14:37: Immature Granulocyte % (Auto) 0.9, Neutrophils (%) (Auto) 81.8H, Lymphocytes (%) (Auto) 11.5L, Monocytes (%) (Auto) 4.8, Eosinophils (%) (Auto) 0.7, Basophils (%) (Auto) 0.3, Neutrophils # (Auto) 5.7, Lymphocytes # (Auto) 0.8L, Monocytes # (Auto) 0.3, Eosinophils # (Auto) 0.1, Basophils # (Auto) 0.0, Nucleated Red Blood Cells % (auto) 0.0, Activated Partial Thromboplast Time 99.5H, Total Creatine Kinase 106, Creatine Kinase MB 1.1, Creatine Kinase MB Relative Index 1.04, Troponin I 0.09 12/11/20 15:17: POC Glucose (Misc Panel) 112H, POC Sodium (Misc Panel) 139, POC Potassium (Misc Panel) 4.1, POC Chloride (Misc Panel) 107, POC Total CO2 (Misc Panel) 23.0, POC Blood Urea Nitrogen (Misc Panel 19, POC Ionized Calcium (Misc Panel) 5.0, POC Creatinine (Misc Panel) 1.4H, POC Hematocrit (Misc Panel) 37.0L 12/11/20 15:20: POC Prothrombin Time (Misc) 16.5H, POC INR (Misc) 1.4 12/11/20 23:07: Erythrocyte Sedimentation Rate 25H, C-Reactive Protein, Quantitative 1.02H 12/12/20 05:33: Anion Gap 5L, Glomerular Filtration Rate 55.3L, Calcium Level 8.5, Triglycerides Level 151H, Total Cholesterol 184, LDL Cholesterol 106H, Non-HDL Cholesterol (LDL + VLDL) 136, Total HDL Cholesterol 48, Cholesterol/HDL Ratio 3.833 12/12/20 13:07: Lab Scanned Report Miscellaneous Lab CBC/BMP Laboratory Tests 12/11/20 14:37 12/12/20 05:33 Microbiology Microbiology 12/11/20 Respiratory Virus Panel (PCR) (THAD) - Final, Complete REMI DIAMOND MD December 12, 2020 13:48
[2020-12-12 16:50] VITALS: BP 138/88
--- NOTE | 2020-12-12 20:21 | ECGEPIP ---
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
[2020-12-12] MEDS ORDERED: ATORVASTATIN 20 MG TAB PO SCH (21:00)
[2020-12-12 22:00] VITALS: BP 146/86
[2020-12-13 02:00] VITALS: BP 142/83
[2020-12-13 06:00] VITALS: BP 157/90
[2020-12-13 06:58] LABS: CREATININE FOR GFR 1.4 MG/DL (0.70-1.30); GLOMERULAR FILTRATION RATE 58.1 (>60); POTASSIUM SERUM 3.9 MEQ/L (3.5-5.1)
[2020-12-13] MEDS: APIXABAN 5 MG TAB (ELIQUIS) PO SCH (08:44)
[2020-12-13] MEDS: ASPIRIN 81 MG CHEW TABLET PO SCH (08:44)
[2020-12-13] MEDS: PANTOPRAZOLE 40MG TAB (PROTONIX) PO SCH (08:44)
[2020-12-13] MEDS ORDERED: ASPI81CH8 PO (08:46)
[2020-12-13] MEDS ORDERED: ATOR1TAB21 PO (08:46)
[2020-12-13 10:00] VITALS: BP 151/85
[2020-12-13 12:03] LABS: DRVV CONFIRM 57.7 SEC; LUPUS CONFIRM RATIO 1.5; NORMALIZED RATIO 3.47 (0.00-1.20)
[2020-12-13 12:04] LABS: PTT LUPUS TYPE ANTICOAG SCREEN 5.5 (0-1.2)
--- NOTE | 2020-12-13 21:48 | DSES ---
DISCHARGE SUMMARY DATE OF ADMISSION: 12/12/2020 DATE OF DISCHARGE: 12/13/2020 DISCHARGE DIAGNOSES: 1. Acute multi-infarction stroke. 2. Mild acute kidney injury (LEROY). 3. Hypertension. 4. Hyperlipidemia. 5. History of lupus anticoagulant syndrome. CONSULTANTS ON THE CASE: Dr. Laureano, neurology. PROCEDURES PERFORMED DURING THIS HOSPITALIZATION: None. DISPOSITION: Patient discharged home. CONDITION ON DISCHARGE: Stable with resolution of neurologic symptoms. DISCHARGE INSTRUCTIONS: Patient is instructed to take Eliquis 5 mg twice a day along with baby aspirin. He is also to take atorvastatin. The patient is to follow up with his primary care physician (PCP) in approximately 1 weeks' time to arrange for a referral to a sales communications manager at tertiary center for further evaluation of his underlying hypercoagulable state. In addition, patient is to follow up with his cook specialty foreign food, Dr. De Paz, for outpatient transesophageal echocardiogram, as patient was not interested in staying in the hospital over the weekend to get one done on Tuesday. IMAGING STUDIES OBTAINED DURING THE PATIENT'S HOSPITAL STAY: Chest x-ray, one view, showed no acute pathology. CT of the head without contrast showed no acute pathology. CT of the head and neck was unremarkable. MRI of the brain showed abnormal appearance of the brain with areas of probable acute infarction involving the vermis on the left and subcortical foci right medial parietal. There may be subacute infarctions right cerebella hemisphere and subcortical right central centrum semiovale. However, there is also abnormal signal in the medial left temporal lobe and possibly within both hippocampi. Therefore, these findings could also be due to paraneoplastic syndrome or cerebritis/encephalitis involving the subarachnoid space, which could also account for the abnormal appearance of the cerebella foil with areas of hyperintensity of T1 weighted sequence, which can also be seen with blood products, melanoma, among other etiologies. PERTINENT LABORATORIES: White count 7, hemoglobin 13.9, hematocrit 39, platelet count 133,000. Hypercoagulable panel pending at time of discharge. Sodium 142, potassium 3.9, chloride 133, bicarbonate 25, anion gap 5, BUN 16, creatinine 1.4, glucose 107, calcium 8. C-reactive protein (CRP) is 1. Serial troponin markers negative. Triglycerides 155, total cholesterol 184, LDL 106, total HDL 48. TRUDI screen pending. COVID swab was negative. HOSPITAL COURSE: Jamar is a 45-year-old gentleman with history of hypercoagulable state. He is chronically on Eliquis. He reports being compliant with his Eliquis. He presented to the hospital with complaints of left leg numbness. When patient arrived in the emergency room, he was outside the window of any tissue plasminogen activator (tPA). CT scan of the head was unremarkable. He would not have been a candidate anyway, as he is chronically on Eliquis. Patient's primary CT SCAN of the head and neck was unremarkable. He was admitted to the hospitalist service as an observation to rule out transient ischemic attack (TIA). However, his MRI of the brain did show that he had multi-infarction territories. He was monitored on telemetry and had no evidence of arrhythmias. His EKG showed a normal sinus rhythm. He was maintained on his Eliquis. Neurology was consulted. Aspirin was added. Lipid profile was checked. Patient was noted to have elevated LDL, not at goal of less than 70. He was started on atorvastatin 40 mg by mouth daily. He had some mild acute kidney injury (LEROY). He was hydrated with intravenous (IV) fluids. Losartan was held and permissive hypertension was allowed. Clinically, patient had resolution of his neurologic symptoms. He was seen by Dr. Laureano, who recommended that he needed transesophageal echocardiogram (DHARA). However, patient declined to stay in the hospital over the weekend and preferred to follow up with Dr. De Paz for an outpatient DHARA, which was appropriate. An echocardiogram was not done during this hospitalization as the patient recently had one done two months ago which was essentially normal. Patient was discharged home in stable condition. PHYSICAL EXAMINATION AT DISCHARGE: Temperature 98.2, pulse 67 and regular, respirations 12, blood pressure 151/85, oxygen saturation 95% on room air. GENERAL: Jamar is alert and oriented times three. His speech is fluent. He had no facial asymmetry. He is moving all four extremities in a coordinating and voluntary manner. HEAD: Atraumatic. Pupils symmetric and react to light. Oropharynx clear. Neck supple. LUNG SOUNDS: Present without rales or rhonchi. HEART: S1, S2. No audible murmurs or gallops. ABDOMEN: Soft, nontender, nondistended. EXTREMITIES: Without any significant cyanosis, clubbing or edema. NEUROLOGIC EXAM: Cranial nerves II-XII grossly intact. Patient has no focal neurologic deficits. No difficulties with ambulation. DISCHARGE MEDICATIONS: - aspirin 81 mg daily - atorvastatin 40 mg at bedtime - Eliquis 5 mg twice a day - omeprazole 40 mg by mouth daily - paroxetine 20 mg daily - valsartan 80 mg by mouth daily A total of 30 minutes spent completing all discharge paperwork.
== END 2020-12-13 10:51 | disposition home or self-care (01) | DRG 45 ==
LOC: M ED 14:21 → M ED INP 17:47 → ENRESERV 19:07 → M MSPAV 22:24 → OBSVTOIN 12-12 07:50
PROVIDERS: ADMIT Internal Medicine; ATTEND Internal Medicine
DX: I63.9 Cerebral infarction, unspecified (principal); N17.9 Acute kidney failure, unspecified; I10 Essential (primary) hypertension; E78.5 Hyperlipidemia, unspecified; Z79.01 Long term (current) use of anticoagulants; F41.9 Anxiety disorder, unspecified; K21.9 Gastro-esophageal reflux disease without esophagitis; Z86.718 Personal history of other venous thrombosis and embolism; Z86.711 Personal history of pulmonary embolism

== ENCOUNTER → 2021-01-15 | Outpatient (CLI) | payer BC ==
[~2021-01-15] MED LIST changes: +ASPI81CH8 PO; +ATOR1TAB21 PO; +OMEP-218 PO; +OMEP40CA4 PO; -OMEP40CA97 PO; +VALS1TAB66 PO
== END ==
LOC: M LABSMTC 11:48
PROVIDERS: ATTEND Anesthesiology
DX: Z01.818 Encounter for other preprocedural examination (principal); Z11.52 Encounter for screening for COVID-19

== ENCOUNTER 2021-01-20 15:21 | Day surgery (SDC) | payer BC ==
[~2021-01-20] VITALS: Ht 172.7 cm; Wt 102.1 kg
[~2021-01-20 15:21] MED LIST changes: +LR 1,000 ML IV ONE
[2021-01-20] MEDS ORDERED: CETACAINE SPRAY 5GM As Ordered ONE (16:04)
[2021-01-20] MEDS ORDERED: LIDOCAINE VISCOUS 2% SOLN 15ML UDC As Ordered ONE (16:04)
[2021-01-20] MEDS ORDERED: propofoL 200 MG/20 ML VIAL As Ordered ONE (17:37)
[2021-01-20] MEDS ORDERED: LIDOCAINE 2% 100MG/5ML SDV (FOR ANES.) As Ordered ONE (17:37)
[2021-01-20] MEDS ORDERED: fentaNYL 100 MCG/2 ML INJECTION (J3010) As Ordered ONE (17:37)
[2021-01-20 18:35] VITALS: BP 144/82
--- NOTE | 2021-01-21 06:24 | T-ECHO ---
TRANSESOPHAGEAL ECHO DATE: 01/20/2021 INDICATIONS: Cerebrovascular accident. ANESTHESIOLOGIST: Rubén Cruz CRNA. PROCEDURE: Transesophageal echocardiogram. BRIEF HISTORY: The patient is a very pleasant 45-year-old man who has a history of lupus anticoagulant, history of deep vein thrombosis (DVT), and recent history of stroke that was due to embolism to multiple areas of the brain in November 2020. He was at that point already anticoagulated and aspirin was added to his regimen. Because of high suspicion for cardiac source of emboli, transesophageal echocardiogram was requested. I met with the patient on an outpatient basis in the office. I discussed the procedure and he signed the appropriate consent. Prior to the procedure, the patient was again examined and additional history taken and it was confirmed there has not been any change in his condition. PROCEDURE NOTE: The procedure was performed in the operating room. The patient presenting in a fasting condition. After appropriate time-out was taken and all the monitors were applied, his posterior pharynx was anesthetized using viscous Lidocaine and Cetacaine spray. He was then positioned in the left lateral decubital position. Bite block was placed and secured with elastic band. When appropriate level of sedation was administered by anesthesiology, the probe was introduced into the esophagus and later the stomach without difficulty. After appropriate images were taken, it was withdrawn. There were no immediate complications and the patient tolerated the procedure well. FINDINGS: Normal LV systolic function with estimated ejection fraction (EF) around 60% to 65%. Normal right ventricular (RV) systolic function. Both atria appeared grossly normal size. Left atrial appendage is long and narrow and free of thrombi. There is normal flow in both left-sided and right-sided pulmonary veins. Atrial septum is intact based on 2D, color Doppler imaging, and also by injection of agitated saline through peripheral vein. Mitral valve is normal structurally. By 2D and color imaging, there is only trace mitral insufficiency. Tricuspid valve also appeared structurally normal. There was only trace insufficiency. The pulmonic valve was relatively poorly visualized, but structurally appears normal based on limited views. No insufficiency by color Doppler imaging is detected. Aortic valve is tricuspid. There is an echo density attached to its cusp measuring approximately 1.2 x 0.6 cm then it moves freely during systole and diastole between left ventricular outflow tract (LVOT) and aorta. This is consistent with small vegetation. By color Doppler imaging, there is no stenosis of the valve and mild insufficiency. Visualized segment of ascending aorta, aortic arch and descending aorta are free of significant atherosclerosis. CONCLUSION: 1. Normal left ventricle (LV) systolic function. 2. Normal right ventricular (RV) systolic function. 3. No significant mitral, tricuspid, and pulmonic valvular abnormality. 4. Left atrial appendage free of thrombus. 5. Normal flow in both left-sided and right-sided pulmonary veins. 6. Intact atrial septum. 7. Negative "bubble study." 8. Small echodensity attached to the aortic valve measuring approximately 1.2 x 0.6 cm consistent with vegetation. 9. No significant aortic atherosclerosis. The patient will be discharged home. He will continue his current medications and office visit will be arranged. I discussed the findings with him.
== END 2021-01-20 18:38 | disposition home or self-care (01) ==
LOC: M SDC 15:21
PROVIDERS: ATTEND Internal Medicine Cardiovascular Disease
DX: I63.9 Cerebral infarction, unspecified (principal); I35.1 Nonrheumatic aortic (valve) insufficiency; M32.9 Systemic lupus erythematosus, unspecified; Z86.718 Personal history of other venous thrombosis and embolism; Z79.82 Long term (current) use of aspirin; Z79.01 Long term (current) use of anticoagulants; K44.9 Diaphragmatic hernia without obstruction or gangrene; Z86.711 Personal history of pulmonary embolism; I10 Essential (primary) hypertension
CPT/HCPCS: 93312; 93320; 93325; J3010

== ENCOUNTER → 2021-02-13 | Outpatient (CLI) | payer BC ==
[~2021-02-13] MED LIST changes: -LR 1,000 ML IV ONE
[2021-02-13 13:39] LABS: BASO % 0.6 % (0.0-1.0); EOS # 0.1 10^3/uL (0.0-0.5); EOS % 1.1 % (0.0-3.0); HEMATOCRIT 37.5 % (42.0-52.0); LYMPH % 13.9 % (24.0-44.0); MEAN CORPUSCULAR HEMOGLOBIN 31.5 pg (27.0-33.0); MEAN CORPUSCULAR HGB CONC 34.7 g/dl (32.0-36.5); MEAN CORPUSCULAR VOLUME 90.8 fl (80.0-96.0); MONO # 0.5 10^3/uL (0.0-0.8); MONO % 6.6 % (2.0-8.0); NEUTROPHILS # 5.4 10^3/uL (1.5-8.5); NEUTROPHILS % 77.1 % (36.0-66.0); PLATELET COUNT, AUTOMATED 206 10^3/uL (150-450); RED BLOOD COUNT 4.13 10^6/uL (4.30-6.10)
[2021-02-13 14:24] LABS: ALBUMIN 3.9 GM/DL (3.2-5.2); ALT/SGPT 32 U/L (12-78); BILIRUBIN,TOTAL 0.9 MG/DL (0.2-1.0); BLOOD UREA NITROGEN 20 MG/DL (7-18); CALCIUM LEVEL 8.9 MG/DL (8.5-10.1); CARBON DIOXIDE LEVEL 25 MEQ/L (21-32); CHLORIDE LEVEL 109 MEQ/L (98-107); CREATININE FOR GFR 1.29 MG/DL (0.70-1.30); GLOMERULAR FILTRATION RATE > 60.0 (>60); GLUCOSE, FASTING 101 MG/DL (70-100); POTASSIUM SERUM 4.1 MEQ/L (3.5-5.1); SODIUM LEVEL 141 MEQ/L (136-145); THYROID STIMULATING HORMONE 0.602 uIU/ML (0.358-3.740); TOTAL PROTEIN 6.6 GM/DL (6.4-8.2)
== END ==
LOC: M LAB 12:40
PROVIDERS: ATTEND Specialist
DX: Z86.711 Personal history of pulmonary embolism (principal)

== ENCOUNTER → 2021-04-24 | Outpatient (CLI) | payer BC ==
--- NOTE | 2021-04-24 14:10 | REP ---
INDICATION: DYSPNEA. COMPARISON: 12/11/2020 the latest prior portable exam TECHNIQUE: PA and lateral FINDINGS: The superior mediastinal structures are midline. The cardiac silhouette is unremarkable in size, shape, and position. The diaphragmatic surfaces of the lungs are regular, and the costophrenic angles are clear. The pulmonary coyne are clear. The imaged osseous structures are intact. IMPRESSION: There is no acute cardiopulmonary disease. <Electronically signed by Franky Blake > 04/24/21 [id number]
--- NOTE | 2021-04-24 14:48 | REP ---
INDICATION: SOB CHEST PAIN W/ PE. COMPARISON: Comparison is made with chest x-ray from earlier this date. TECHNIQUE: 1.0 mCi of technetium 99m DTPA aerosol is utilized for the ventilation study and is followed by a 5.5 mCi dose of intravenous technetium 99m MAA for the perfusion study. A sequence of 8 planar images are acquired for each portion of the study. FINDINGS: There is fairly homogeneous uptake on the ventilation portion of the study. The perfusion exam however demonstrates multiple peripheral defects which are mismatched. These are observed in the upper lobes bilaterally, the right mid lung zone, and the left base. IMPRESSION: High probability scan for pulmonary embolus. Multiple mismatched perfusion defects. <Electronically signed by Elías Mckeon > 04/24/21 [id number]
== END ==
LOC: M RAD 13:17
PROVIDERS: ATTEND Internal Medicine Cardiovascular Disease
DX: R06.02 Shortness of breath (principal); R07.9 Chest pain, unspecified
CPT/HCPCS: 71046; 78582; A9540; A9567

== ENCOUNTER → 2021-07-09 | Outpatient (REF) | payer BC ==
[2021-07-09 12:49] LABS: HEMATOCRIT 42.3 % (42.0-52.0); HEMOGLOBIN 14.7 g/dl (13.5-17.5); MEAN CORPUSCULAR HEMOGLOBIN 31.6 pg (27.0-33.0); MEAN CORPUSCULAR HGB CONC 34.8 g/dl (32.0-36.5); PLATELET COUNT, AUTOMATED 177 10^3/uL (150-450); RED BLOOD COUNT 4.65 10^6/uL (4.30-6.10); WHITE BLOOD COUNT 6.4 10^3/uL (4.0-10.0)
[2021-07-09 13:18] LABS: CALCIUM LEVEL 8.9 MG/DL (8.5-10.1); CREATININE FOR GFR 1.4 MG/DL (0.70-1.30); GLOMERULAR FILTRATION RATE 57.8 (>60); POTASSIUM SERUM 4.2 MEQ/L (3.5-5.1); TOTAL PROTEIN 6.3 GM/DL (6.4-8.2)
[2021-07-09 13:19] LABS: ALBUMIN 3.9 GM/DL (3.2-5.2)
== END ==
LOC: M SFHCADAM 08:27
PROVIDERS: ATTEND Physician Assistant
DX: E55.9 Vitamin D deficiency, unspecified (principal); I10 Essential (primary) hypertension; Z86.711 Personal history of pulmonary embolism; I63.10 Cerebral infarction due to embolism of unspecified precerebral artery

== ENCOUNTER → 2021-07-31 | Outpatient (CLI) | payer BC ==
[~2021-07-31] MED LIST changes: +ISOVUE-370 76% 100ML VIAL As Ordered ONE
== END ==
LOC: M RAD 08:08
DX: I27.24 Chronic thromboembolic pulmonary hypertension (principal)
CPT/HCPCS: 71275; Q9967

== ENCOUNTER → 2021-09-01 | Outpatient (CLI) | payer BC ==
[~2021-09-01] MED LIST changes: -ISOVUE-370 76% 100ML VIAL As Ordered ONE; +OMEP-173 PO; -OMEP-218 PO
== END ==
LOC: M CARPUL 13:02
PROVIDERS: ATTEND Internal Medicine Cardiovascular Disease
DX: I27.24 Chronic thromboembolic pulmonary hypertension (principal); I35.1 Nonrheumatic aortic (valve) insufficiency; I31.3 Pericardial effusion (noninflammatory)

== ENCOUNTER → 2022-07-01 | Outpatient (CLI) | payer BC ==
[2022-07-01 17:43] LABS: HEMATOCRIT 39.5 % (42.0-52.0); HEMOGLOBIN 13.4 g/dl (13.5-17.5); MEAN CORPUSCULAR HEMOGLOBIN 31.5 pg (27.0-33.0); MEAN CORPUSCULAR HGB CONC 33.9 g/dl (32.0-36.5); MEAN CORPUSCULAR VOLUME 92.9 fl (80.0-96.0); PLATELET COUNT, AUTOMATED 149 10^3/uL (150-450); RED BLOOD COUNT 4.25 10^6/uL (4.30-6.10); WHITE BLOOD COUNT 6.1 10^3/uL (4.0-10.0)
[2022-07-01 18:19] LABS: BLOOD UREA NITROGEN 19 MG/DL (9-23); CALCIUM LEVEL 8.5 MG/DL (8.5-10.1); CARBON DIOXIDE LEVEL 27 MMOL/L (20-31); CHLORIDE LEVEL 109 MMOL/L (98-107); CREATININE FOR GFR 1.24 MG/DL (0.70-1.30); GLOMERULAR FILTRATION RATE > 60.0 (>60); GLUCOSE, FASTING 111 MG/DL (60-100); SODIUM LEVEL 144 MMOL/L (136-145)
== END ==
LOC: M WUC 12:58
PROVIDERS: ATTEND Internal Medicine Cardiovascular Disease
DX: I27.82 Chronic pulmonary embolism (principal)

== ENCOUNTER → 2022-10-06 | Outpatient (REF) | payer OTHER ==
[2022-10-06 13:11] LABS: HEMATOCRIT 44.5 % (42.0-52.0); MEAN CORPUSCULAR HEMOGLOBIN 31.3 pg (27.0-33.0); MEAN CORPUSCULAR HGB CONC 33.7 g/dl (32.0-36.5); MEAN CORPUSCULAR VOLUME 92.9 fl (80.0-96.0); PLATELET COUNT, AUTOMATED 164 10^3/uL (150-450); RED BLOOD COUNT 4.79 10^6/uL (4.30-6.10); WHITE BLOOD COUNT 6.3 10^3/uL (4.0-10.0)
[2022-10-06 13:15] LABS: BILIRUBIN,TOTAL 0.5 MG/DL (0.3-1.2); CALCIUM LEVEL 9.3 MG/DL (8.5-10.1); CHOLESTEROL RISK RATIO 4.86 (<5); CREATININE FOR GFR 1.49 MG/DL (0.70-1.30); GLOMERULAR FILTRATION RATE 53.6 (>60); LDL CHOLESTEROL 126.6 MG/DL (<100); POTASSIUM SERUM 4.6 MMOL/L (3.5-5.1)
[2022-10-06 13:16] LABS: FREE T4 1.07 NG/DL (0.89-1.76); THYROID STIMULATING HORMONE 0.796 uIU/ML (0.55-4.78)
== END ==
LOC: M SFHCADAM 07:07
PROVIDERS: ATTEND Physician Assistant
DX: I10 Essential (primary) hypertension (principal); F41.9 Anxiety disorder, unspecified; D68.62 Lupus anticoagulant syndrome; K21.9 Gastro-esophageal reflux disease without esophagitis; I27.24 Chronic thromboembolic pulmonary hypertension; Z12.11 Encounter for screening for malignant neoplasm of colon; Z13.220 Encounter for screening for lipoid disorders

== ENCOUNTER → 2024-10-12 | Outpatient (REF) | payer BC ==
[~2024-10-12] MED LIST changes: -BAYE325T12 PO; +BAYE325T2 PO
[2024-10-12 17:12] LABS: BASO % 0.6 % (0.0-1.0); EOS # 0.1 10^3/uL (0.0-0.5); HEMATOCRIT 40.3 % (42.0-52.0); HEMOGLOBIN 14.1 g/dl (13.5-17.5); LYMPH % 14.4 % (24.0-44.0); MEAN CORPUSCULAR HEMOGLOBIN 31.4 pg (27.0-33.0); MEAN CORPUSCULAR VOLUME 89.8 fl (80.0-96.0); MONO # 0.4 10^3/uL (0.0-0.8); MONO % 6.3 % (2.0-8.0); NEUTROPHILS # 5.3 10^3/uL (1.5-8.5); PLATELET COUNT, AUTOMATED 214 10^3/uL (150-450); RED BLOOD COUNT 4.49 10^6/uL (4.30-6.10)
[2024-10-12 17:37] LABS: ALBUMIN 4.1 G/DL (3.2-5.2); ALKALINE PHOSPHATASE 97 U/L (40-129); ALT/SGPT 23 U/L (7.0-40); AST/SGOT 16 U/L (<34); BILIRUBIN,TOTAL 0.6 MG/DL (0.3-1.2); BLOOD UREA NITROGEN 28 MG/DL (9-23); CALCIUM LEVEL 9.1 MG/DL (8.5-10.1); CARBON DIOXIDE LEVEL 31 MMOL/L (20-31); CHLORIDE LEVEL 103 MMOL/L (98-107); CHOLESTEROL LEVEL 213 MG/DL (<200); CHOLESTEROL RISK RATIO 3.93 (<5); CREATININE FOR GFR 1.48 MG/DL (0.70-1.30); GLOMERULAR FILTRATION RATE 53.6 (>56); GLUCOSE, FASTING 111 MG/DL (60-100); HDL CHOLESTEROL 54.1 MG/DL (>40); LDL CHOLESTEROL 114.3 MG/DL (<100); NON-HDL-C 158.9 MG/DL; POTASSIUM SERUM 4.2 MMOL/L (3.5-5.1); SODIUM LEVEL 141 MMOL/L (136-145); THYROID STIMULATING HORMONE 0.958 uIU/ML (0.55-4.78); TOTAL PROTEIN 7.1 G/DL (5.7-8.2); TRIGLYCERIDES LEVEL 223 MG/DL (<150)
[2024-10-12 17:39] LABS: VITAMIN B12 LEVEL 437 PG/ML (211-911)
[2024-10-12 18:02] LABS: HEMOGLOBIN A1c 4.8 % (4.0-6.0)
[2024-10-12 19:06] LABS: FOLATE 5.8 NG/ML (>5.4)
== END ==
LOC: M SFHCADAM 15:09
PROVIDERS: ATTEND Physician Assistant
DX: R41.3 Other amnesia (principal); F41.9 Anxiety disorder, unspecified; K21.9 Gastro-esophageal reflux disease without esophagitis; I10 Essential (primary) hypertension; D68.62 Lupus anticoagulant syndrome; I63.10 Cerebral infarction due to embolism of unspecified precerebral artery; I27.24 Chronic thromboembolic pulmonary hypertension; E78.00 Pure hypercholesterolemia, unspecified; Z12.5 Encounter for screening for malignant neoplasm of prostate

== ENCOUNTER → 2024-11-02 | Outpatient (REF) | payer BC ==
[2024-11-02 14:34] LABS: THYROID STIMULATING HORMONE 0.974 uIU/ML (0.55-4.78); THYROXINE (T4) 8.6 UG/DL (4.5-10.9)
[2024-11-02 14:37] LABS: ALBUMIN 4.2 G/DL (3.2-5.2); BILIRUBIN,TOTAL 0.8 MG/DL (0.3-1.2); CALCIUM LEVEL 9.5 MG/DL (8.5-10.1); CHOLESTEROL RISK RATIO 3.92 (<5); CREATININE FOR GFR 1.64 MG/DL (0.70-1.30); GLOMERULAR FILTRATION RATE 50.6 (>56); HDL CHOLESTEROL 46.9 MG/DL (>40); LDL CHOLESTEROL 100.9 MG/DL (<100); NON-HDL-C 137.1 MG/DL; POTASSIUM SERUM 4.1 MMOL/L (3.5-5.1)
[2024-11-02 14:38] LABS: ERYTHROCYTE SEDIMENTATION RATE 9 mm/hr (0-20)
[2024-11-02 14:39] LABS: FREE THYROXINE INDEX 2.6 % (1.4-3.8); T UPTAKE 30.5 % (22.5-37.0)
[2024-11-02 14:42] LABS: FOLATE 11.6 NG/ML (>5.4)
[2024-11-02 14:46] LABS: BASO % 0.5 % (0.0-1.0); EOS # 0.1 10^3/uL (0.0-0.5); EOS % 1.2 % (0.0-3.0); HEMATOCRIT 41.8 % (42.0-52.0); HEMOGLOBIN 14.4 g/dl (13.5-17.5); LYMPH # 0.9 10^3/uL (1.5-5.0); LYMPH % 13.1 % (24.0-44.0); MEAN CORPUSCULAR HEMOGLOBIN 31.3 pg (27.0-33.0); MEAN CORPUSCULAR HGB CONC 34.4 g/dl (32.0-36.5); MEAN CORPUSCULAR VOLUME 90.9 fl (80.0-96.0); MONO # 0.4 10^3/uL (0.0-0.8); MONO % 6.4 % (2.0-8.0); NEUTROPHILS # 5.1 10^3/uL (1.5-8.5); NEUTROPHILS % 77.9 % (36.0-66.0); PLATELET COUNT, AUTOMATED 168 10^3/uL (150-450); WHITE BLOOD COUNT 6.6 10^3/uL (4.0-10.0)
[2024-11-05 13:33] LABS: ANA PATTERN Nuclear, Speckled (NEGATIVE); ANA SCREEN, IFA POSITIVE (NEGATIVE)
[2024-11-06 00:13] LABS: VITAMIN E(ALPHA TOCOPHEROL) 11.6 mg/L (5.7-19.9); VITAMIN E(GAMMA TOCOPHEROL) 1.4 mg/L (<=4.3)
== END ==
LOC: M LABDRWAD 13:21
PROVIDERS: ATTEND Psychiatry & Neurology Neurology
DX: E78.5 Hyperlipidemia, unspecified (principal); E53.8 Deficiency of other specified B group vitamins; E11.9 Type 2 diabetes mellitus without complications; E07.9 Disorder of thyroid, unspecified

== ENCOUNTER → 2024-11-02 | Outpatient (CLI) | payer BC ==
[~2024-11-02] MED LIST changes: +PROHANCE 279.3MG/ML 15ML VIAL ONE; +PROHANCE 279.3MG/ML 5ML VIAL ONE
== END ==
LOC: M PLAIMG 11:04
PROVIDERS: ATTEND Physician Assistant
DX: R41.3 Other amnesia (principal); D68.62 Lupus anticoagulant syndrome; I63.10 Cerebral infarction due to embolism of unspecified precerebral artery; G93.89 Other specified disorders of brain; J32.0 Chronic maxillary sinusitis
CPT/HCPCS: 70553; A9576

== ENCOUNTER → 2025-01-31 | Outpatient (CLI) | payer BC ==
[~2025-01-31] MED LIST changes: +AMLO1TAB24 PO; +CHLO125TA PO; +OMEP40CA5 PO; +PARO30TA4 PO; +PERC5TAB12 PO; -PROHANCE 279.3MG/ML 15ML VIAL ONE; -PROHANCE 279.3MG/ML 5ML VIAL ONE; +ROSU10TA61 PO; +TLSO BRACE; +WARF-58 PO; +WARF4TAB51 PO
== END ==
LOC: M RAD 08:17
PROVIDERS: ATTEND Physician Assistant
DX: S22.080D Wedge compression fracture of T11-T12 vertebra, subsequent encounter for fracture with routine healing (principal); Y93.9 Activity, unspecified; Y92.9 Unspecified place or not applicable

== ENCOUNTER → 2025-02-15 | Outpatient (CLI) | payer BC | LOC: M RAD 09:40 | PROVIDERS: ATTEND Neurological Surgery | DX: S22.001 Stable burst fracture of unspecified thoracic vertebra (principal); M47.814 Spondylosis without myelopathy or radiculopathy, thoracic region; Z95.828 Presence of other vascular implants and grafts ==

== ENCOUNTER → 2025-04-04 | Outpatient (CLI) | payer OTHER | LOC: M RAD 14:56 | PROVIDERS: ATTEND Neurological Surgery | DX: S22.080G Wedge compression fracture of T11-T12 vertebra, subsequent encounter for fracture with delayed healing (principal); Y93.9 Activity, unspecified; Y92.9 Unspecified place or not applicable ==

== ENCOUNTER → 2025-07-05 | Outpatient (CLI) | payer OTHER ==
[~2025-07-05] MED LIST changes: -ROSU10TA61 PO; +ROSU10TA90 PO
[2025-07-10 11:36] LABS: DRVV SCREEN 129.2 SECONDS; PTT LUPUS TYPE ANTICOAG SCREEN 3.42 (0-1.20)
[2025-07-10 11:43] LABS: DRVV CONFIRM 48.9 SECONDS; LUPUS CONFIRM RATIO 1.31
[2025-07-10 11:44] LABS: NORMALIZED RATIO 2.61 (0.00-1.20)
== END ==
LOC: M LAB 17:00
PROVIDERS: ATTEND Internal Medicine Cardiovascular Disease
DX: I27.24 Chronic thromboembolic pulmonary hypertension (principal); R76.0 Raised antibody titer

== ENCOUNTER → 2025-07-05 | Outpatient (CLI) | payer OTHER ==
[2025-07-05 17:47] LABS: BASO # 0.0 10^3/uL (0.0-0.2); BASO % 0.3 % (0.0-1.0); EOS # 0.1 10^3/uL (0.0-0.5); EOS % 1.5 % (0.0-3.0); LYMPH # 0.9 10^3/uL (1.5-5.0); LYMPH % 14.9 % (24.0-44.0); MONO # 0.4 10^3/uL (0.0-0.8); MONO % 6.9 % (2.0-8.0); NEUTROPHILS # 4.5 10^3/uL (1.5-8.5); NEUTROPHILS % 76.1 % (36.0-66.0); PLATELET COUNT, AUTOMATED 214 10^3/uL (150-450)
[2025-07-05 18:08] LABS: INR 2.2
[2025-07-05 18:22] LABS: ALT/SGPT 20.0 U/L (7.0-40); AST/SGOT 20.0 U/L (<34); CALCIUM LEVEL 8.9 MG/DL (8.5-10.1); CARBON DIOXIDE LEVEL 29.0 MMOL/L (20-31); CHLORIDE LEVEL 103.0 MMOL/L (98-107); CHOLESTEROL LEVEL 185.0 MG/DL (<200); CHOLESTEROL RISK RATIO 3.58 (<5); CREATININE FOR GFR 1.69 MG/DL (0.70-1.30); GLOMERULAR FILTRATION RATE 48.6 (>56); LDL CHOLESTEROL 83.4 MG/DL (<100); NON-HDL-C 133.4 MG/DL; POTASSIUM SERUM 3.9 MMOL/L (3.5-5.1); SODIUM LEVEL 140.0 MMOL/L (136-145); TRIGLYCERIDES LEVEL 250.0 MG/DL (<150)
[2025-07-05 18:24] LABS: FREE T4 1.28 NG/DL (0.89-1.76)
== END ==
LOC: M LAB 16:55
PROVIDERS: ATTEND Physician Assistant
DX: E78.00 Pure hypercholesterolemia, unspecified (principal); Z79.01 Long term (current) use of anticoagulants; K21.9 Gastro-esophageal reflux disease without esophagitis; I10 Essential (primary) hypertension